=== PATIENT | male | born 1960 | race American Indian/Alaskan Native ===

== ENCOUNTER 2019-10-07 21:34 | Emergency (ER) | payer SELFPAY ==
[2019-10-07] MEDS ORDERED: ASPIRIN 325 MG TAB PO ONE (21:51)
[2019-10-07 22:04] LABS: Basophils % (Auto) 0.9 % (0.0-1.8); Eosinophils # (Auto) 0.3 K/mm3 (0.0-0.4); Eosinophils % (Auto) 5.2 % (0.0-4.3); Hemoglobin 16.1 gm/dl (11.8-15.2); Lymphocytes % (Auto) 18.8 % (13.4-35.0); Mean Corpuscular HGB Conc 34 % (32-34); Mean Corpuscular Volume 98 fl (84-94); Monocytes # (Auto) 0.5 K/mm3 (0.0-0.8); Platelet Count 160 K/mm3 (140-440); Red Blood Count 4.81 M/mm3 (3.65-5.03); Red Cell Distribution Width 13.8 % (13.2-15.2)
[2019-10-07 22:29] LABS: BUN/Creatinine Ratio 10; Blood Urea Nitrogen 7 mg/dL (9-20); Calcium 9.5 mg/dL (8.4-10.2); Hemolysis Index 13
--- NOTE | 2019-10-07 22:52 | XRay Report ---
. CHEST 2 VIEWS INDICATION / CLINICAL INFORMATION: Chest Pain. COMPARISON: None available. FINDINGS: SUPPORT DEVICES: None. HEART / MEDIASTINUM: No significant abnormality. LUNGS / PLEURA: No significant pulmonary or pleural abnormality. No pneumothorax. ADDITIONAL FINDINGS: No significant additional findings. IMPRESSION: 1. No acute findings. Signer Name: Nino Levi MD Signed: 10/07/2019 10:48 PM Workstation Name: [id number]
--- NOTE | 2019-10-08 02:49 | Emergency Department Report ---
ED Chest Pain HPI - General Chief Complaint: Chest Pain Stated Complaint: CHEST PAIN Time Seen by Provider: 10/08/19 02:44 Source: patient Mode of arrival: Ambulatory Limitations: No Limitations - History of Present Illness Initial Comments: Mr. Zhang is a 59-year-old male with history of hypertension, tobacco and alcohol dependence who presents with generalized malaise chest pain for 4 days. 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 He feels a dull ache in his chest after he returns home from work. No association with exertion. No leg pain. He drinks a sixpack of beer daily. MD Complaint: chest pain -: Gradual, days(s) (4) Onset: during rest Pain Location: substernal Severity: mild Quality: dull Consistency: constant Improves With: nothing Worsens With: nothing re: denies: nausea, vomting Other Symptoms: denies: cough, fever - Related Data Allergies Allergy/AdvReac Type Severity Reaction Status Date / Time No Known Allergies Allergy Verified 10/07/19 21:50 Heart Score - HEART Score History: Slightly suspicious EKG: Normal Age: 45-65 Risk factors: 1-2 risk factors Troponin: < normal limit HEART Score: 2 ED Review of Systems ROS: Stated complaint: CHEST PAIN Other details as noted in HPI Comment: All other systems reviewed and negative Constitutional: malaise. denies: fever Respiratory: denies: cough Cardiovascular: chest pain ED Past Medical Hx - Past Medical History Previous Medical History?: Yes Hx Hypertension: Yes - Surgical History Past Surgical History?: No ED Physical Exam - General Limitations: No Limitations General appearance: alert, in no apparent distress - Head Head exam: Present: atraumatic, normocephalic - Eye Eye exam: Present: normal appearance, conjunctival injection. Absent: scleral icterus - ENT ENT exam: Present: mucous membranes moist - Neck Neck exam: Present: normal inspection, full ROM - Respiratory Respiratory exam: Present: normal lung sounds bilaterally. Absent: respiratory distress, wheezes, rales, rhonchi - Cardiovascular Cardiovascular Exam: Present: regular rate, normal rhythm, normal heart sounds. Absent: systolic murmur, diastolic murmur, rubs, gallop - GI/Abdominal GI/Abdominal exam: Present: soft, normal bowel sounds. Absent: distended, te nderness, guarding, rebound - Rectal Rectal exam: Present: deferred - Extremities Exam Extremities exam: Present: normal inspection - Back Exam Back exam: Present: normal inspection - Neurological Exam Neurological exam: Present: alert, oriented X3 - Psychiatric Psychiatric exam: Present: normal affect, normal mood - Skin Skin exam: Present: warm, dry, intact, normal color. Absent: rash ED Course Vital Signs 10/07/19 21:48 Temperature 98.1 F Pulse Rate 87 Respiratory 16 Rate Blood Pressure 159/101 O2 Sat by Pulse 98 Oximetry ED Medical Decision Making - Lab Data Result diagrams: 10/07/19 21:54 10/07/19 21:54 Laboratory Results - last 24 hr 10/07/19 10/07/19 10/08/19 21:54 21:54 00:49 WBC 5.2 RBC 4.81 Hgb 16.1 H Hct 47.0 H MCV 98 H MCH 33 H MCHC 34 RDW 13.8 Plt Count 160 Lymph % (Auto) 18.8 [place] % (Auto) 10.0 H Eos % (Auto) 5.2 H Baso % (Auto) 0.9 Lymph # 1.0 L [place] # 0.5 Eos # 0.3 Baso # 0.0 Seg Neutrophils % 65.1 Seg Neutrophils # 3.4 Sodium 134 L Potassium 4.0 Chloride 95.9 L Carbon Dioxide 22 Anion Gap 20 BUN 7 L Creatinine 0.7 L Estimated GFR > 60 BUN/Creatinine Ratio 10 Glucose 108 H Calcium 9.5 Troponin T < 0.010 < 0.010 - Radiology Data Radiology results: report reviewed Chest radiograph: No acute findings - Medical Decision Making Mr. Zhang presents with chest pain generalized malaise. Presentation highly atypical for ACS. Differential diagnosis includes COVID-19 viral infection, esophagitis. Strongly recommended outpatient medicine follow-up. Recommend COVID-19 testing. Referral request faxed to [facility]. Strongly recommended smoking cessation and decrease of alcohol use. Critical care attestation.: If time is entered above; I have spent that time in minutes in the direct care of this critically ill patient, excluding procedure time. ED Disposition Clinical Impression: Chest pain Disposition: DC-01 TO HOME OR SELFCARE Is pt being admited?: No Does the pt Need Aspirin: No Condition: Stable Instructions: Chest Pain (ED) Referrals: SAADIA IBARRA MD [Staff Physician] - 3-5 Days
[2019-10-08 03:19] VITALS: BP 156/98
== END 2019-10-08 03:18 | disposition home or self-care (01) ==
LOC: ED 21:34
DX: R07.89 Other chest pain (principal); R53.81 Other malaise; I10 Essential (primary) hypertension
CPT/HCPCS: 36415; 71046; 80048; 84484; 85025; 93005

== ENCOUNTER 2020-01-12 06:26 | Emergency (ER) | payer OTHER ==
--- NOTE | 2020-01-12 07:06 | XRay Report ---
CHEST 1 VIEW 01/12/2020 5:52 AM INDICATION / CLINICAL INFORMATION: Chest Pain. COMPARISON: 12/03/19 FINDINGS: SUPPORT DEVICES: None. HEART / MEDIASTINUM: No significant abnormality. LUNGS / PLEURA: No significant pulmonary or pleural abnormality. No pneumothorax. ADDITIONAL FINDINGS: No significant additional findings. IMPRESSION: 1. No acute findings. No change. Signer Name: Kvng Pantoja MD Signed: 01/12/2020 7:00 AM Workstation Name: [id number]
[2020-01-12 07:34] LABS: Basophils # (Auto) 0.1 K/mm3 (0.0-0.1); Basophils % (Auto) 2.5 % (0.0-1.8); Eosinophils # (Auto) 0.3 K/mm3 (0.0-0.4); Eosinophils % (Auto) 8.7 % (0.0-4.3); Hematocrit 48.5 % (35.5-45.6); Hemoglobin 16.6 gm/dl (11.8-15.2); Lymphocytes # (Auto) 1.6 K/mm3 (1.2-5.4); Lymphocytes % (Auto) 41.4 % (13.4-35.0); Mean Corpuscular HGB Conc 34 % (32-34); Mean Corpuscular Volume 97 fl (84-94); Monocytes # (Auto) 0.2 K/mm3 (0.0-0.8); Monocytes % (Auto) 5.3 % (0.0-7.3); Platelet Count 293 K/mm3 (140-440); Red Blood Count 4.98 M/mm3 (3.65-5.03); Red Cell Distribution Width 13.9 % (13.2-15.2)
[2020-01-12 07:48] LABS: BUN/Creatinine Ratio 5; Blood Urea Nitrogen 4 mg/dL (9-20); Calcium 9.9 mg/dL (8.4-10.2); Hemolysis Index 6
[2020-01-12] MEDS ORDERED: KETOROLAC 30 MG/1 ML INJ IV ONE (09:33)
[2020-01-12 10:35] VITALS: BP 147/98
--- NOTE | 2020-01-12 11:16 | Emergency Department Report ---
"ED Chest Pain HPI - General Chief Complaint: Chest Pain Stated Complaint: CHEST PAIN Time Seen by Provider: 01/12/20 09:24 Source: patient Mode of arrival: Ambulatory Limitations: No Limitations - History of Present Illness Initial Comments: Patient is a 59-year-old F Tongan male who has past medical history hypertension and also smokes tobacco who states he has had 2 to 3 weeks of sharp chest pain which is been constant. States there is no cough cold congestion nausea or vomiting. He does have some shortness of breath and mild dizziness occasionally. Patient states this is is constant and is not associated with deep breathing or exertion. States is day and night. Severity scale (0 -10): 8 - Related Data Home Medications Medication Instructions Recorded Confirmed Last Taken amLODIPine 10 mg PO DAILY 12/03/19 12/03/19 Unknown Previous Rx's Medication Instructions Recorded Last Taken Type Aspirin EC [Halfprin EC] 81 mg PO QDAY #30 tablet. 12/04/19 Unknown Rx Folic Acid [Folvite] 1 mg PO QDAY #30 tablet 12/04/19 Unknown Rx Pravastatin [Pravachol] 40 mg PO QHS #30 tablet 12/04/19 Unknown Rx Thiamine [Vitamin B-1] 100 mg PO QDAY #7 tablet 12/04/19 Unknown Rx Famotidine [Pepcid] 20 mg PO BID #20 tablet 01/12/20 Unknown Rx Ketorolac [Toradol] 10 mg PO Q6H PRN #12 tablet 01/12/20 Unknown Rx Allergies Allergy/AdvReac Type Severity Reaction Status Date / Time No Known Allergies Allergy Verified 10/07/19 21:50 Heart Score - HEART Score History: Slightly suspicious EKG: Normal Age: < 45 Risk factors: 1-2 risk factors Troponin: < normal limit HEART Score: 1 ED Review of Systems ROS: Stated complaint: CHEST PAIN Other details as noted in HPI Comment: All other systems reviewed and negative ED Past Medical Hx - Past Medical History Previous Medical History?: Yes Hx Hypertension: Yes - Surgical History Past Surgical History?: No - Social History Smoking Status: Former Smoker Substance Use Type: None - Medications Home Medications: Home Medications Medication Instructions Recorded Confirmed Last Taken Type amLODIPine 10 mg PO DAILY 12/03/19 12/03/19 Unknown History Aspirin EC [Halfprin EC] 81 mg PO QDAY #30 tablet. 12/04/19 Unknown Rx Folic Acid [Folvite] 1 mg PO QDAY #30 tablet 12/04/19 Unknown Rx Pravastatin [Pravachol] 40 mg PO QHS #30 tablet 12/04/19 Unknown Rx Thiamine [Vitamin B-1] 100 mg PO QDAY #7 tablet 12/04/19 Unknown Rx Famotidine [Pepcid] 20 mg PO BID #20 tablet 01/12/20 Unknown Rx Ketorolac [Toradol] 10 mg PO Q6H PRN #12 tablet 01/12/20 Unknown Rx ED Physical Exam - General Limitations: No Limitations General appearance: alert, in no apparent distress - Head Head exam: Present: atraumatic, normocephalic - Eye Eye exam: Present: normal appearance - ENT ENT exam: Present: mucous membranes moist - Neck Neck exam: Present: normal inspection - Respiratory Respiratory exam: Present: normal lung sounds bilaterally. Absent: respiratory distress, wheezes, rales, rhonchi - Cardiovascular Cardiovascular Exam: Present: regular rate, normal rhythm, normal heart sounds. Absent: systolic murmur, diastolic murmur, rubs, gallop - GI/Abdominal GI/Abdominal exam: Present: soft, normal bowel sounds. Absent: distended, tenderness, guarding, rebound - Rectal Rectal exam: Present: deferred - Extremities Exam Extremities exam: Present: normal inspection - Back Exam Back exam: Present: normal inspection - Neurological Exam Neurological exam: Present: alert, oriented X3 - Psychiatric Psychiatric exam: Present: normal affect, normal mood - Skin Skin exam: Present: warm, dry, intact, normal color. Absent: rash ED Course Vital Signs 01/12/20 01/12/20 01/12/20 06:30 10:23 10:31 Temperature 97.7 F Pulse Rate 70 76 Respiratory 18 12 15 Rate Blood Pressure 154/100 147/98 ED Medical Decision Making - Lab Data Result diagrams: 01/12/20 06:54 01/12/20 06:54 Lab Results 01/12/20 01/12/20 01/12/20 Range/Units 06:54 06:54 09:50 WBC 4.0 L (4.5-11.0) K/mm3 RBC 4.98 (3.65-5.03) M/mm3 Hgb 16.6 H (11.8-15.2) gm/dl Hct 48.5 H (35.5-45.6) % MCV 97 H (84-94) fl MCH 33 H (28-32) pg MCHC 34 (32-34) % RDW 13.9 (13.2-15.2) % Plt Count 293 (140-440) K/mm3 Lymph % (Auto) 41.4 H (13.4-35.0) % [place] % (Auto) 5.3 (0.0-7.3) % Eos % (Auto) 8.7 H (0.0-4.3) % Baso % (Auto) 2.5 H (0.0-1.8) % Lymph # (Auto) 1.6 (1.2-5.4) K/mm3 [place] # (Auto) 0.2 (0.0-0.8) K/mm3 Eos # (Auto) 0.3 (0.0-0.4) K/mm3 Baso # (Auto) 0.1 (0.0-0.1) K/mm3 Seg Neutrophils % 42.1 (40.0-70.0) % Seg Neutrophils # 1.7 L (1.8-7.7) K/mm3 D-Dimer (0-234) ng/mlDDU Sodium 142 (137-145) mmol/L Potassium 4.1 (3.6-5.0) mmol/L Chloride 101.3 (98-107) mmol/L Carbon Dioxide 27 (22-30) mmol/L Anion Gap 18 mmol/L BUN 4 L (9-20) mg/dL Creatinine 0.8 (0.8-1.3) mg/dL Estimated GFR > 60 ml/min BUN/Creatinine Ratio 5 % Glucose 89 (75-100) mg/dL Calcium 9.9 (8.4-10.2) mg/dL Troponin T < 0.010 < 0.010 (0.00-0.029) ng/mL 01/11/ Range/Units 09:50 WBC (4.5-11.0) K/mm3 RBC (3.65-5.03) M/mm3 Hgb (11.8-15.2) gm/dl Hct (35.5-45.6) % MCV (84-94) fl MCH (28-32) pg MCHC (32-34) % RDW (13.2-15.2) % Plt Count (140-440) K/mm3 Lymph % (Auto) (13.4-35.0) % [place] % (Auto) (0.0-7.3) % Eos % (Auto) (0.0-4.3) % Baso % (Auto) (0.0-1.8) % Lymph # (Auto) (1.2-5.4) K/mm3 [place] # (Auto) (0.0-0.8) K/mm3 Eos # (Auto) (0.0-0.4) K/mm3 Baso # (Auto) (0.0-0.1) K/mm3 Seg Neutrophils % (40.0-70.0) % Seg Neutrophils # (1.8-7.7) K/mm3 D-Dimer 234.39 H (0-234) ng/mlDDU Sodium (137-145) mmol/L Potassium (3.6-5.0) mmol/L Chloride (98-107) mmol/L Carbon Dioxide (22-30) mmol/L Anion Gap mmol/L BUN (9-20) mg/dL Creatinine (0.8-1.3) mg/dL Estimated GFR ml/min BUN/Creatinine Ratio % Glucose (75-100) mg/dL Calcium (8.4-10.2) mg/dL Troponin T (0.00-0.029) ng/mL - EKG Data -: EKG Interpreted by Nm EKG shows normal: sinus rhythm, axis, intervals, QRS complexes, ST-T waves Rate: normal - EKG Data Interpretation: normal EKG - Radiology Data CHEST 1 VIEW 01/12/2020 5:52 AM INDICATION / CLINICAL INFORMATION: Chest Pain. COMPARISON: 12/03/19 FINDINGS: SUPPORT DEVICES: None. HEART / MEDIASTINUM: No significant abnormality. LUNGS / PLEURA: No significant pulmonary or pleural abnormality. No pneumothorax. ADDITIONAL FINDINGS: No significant additional findings. IMPRESSION: 1. No acute findings. No change. Signer Name: Kvng Pantoja MD Signed: 01/12/2020 7:00 AM Workstation Name: [employer] | [id number] - Medical Decision Making Patient has been ruled out for an acute MA with to negative troponins. His D- dimer is less than 250. Patient's pain is atypical. Patient given cardiology for follow-up will be discharged home. Critical care attestation.: If time is entered above; I have spent that time in minutes in the direct care of this critically ill patient, excluding procedure time. ED Disposition Clinical Impression: Atypical chest pain Disposition: DC-01 TO HOME OR SELFCARE Is pt being admited?: No Does the pt Need Aspirin: No Condition: Stable Instructions: Chest Pain (ED) Referrals: PRIMARY CARE, [Primary Care Provider] - 3-5 Days Time of Disposition: 11:16"
== END 2020-01-12 12:18 | disposition home or self-care (01) ==
LOC: ED 06:26
DX: R07.89 Other chest pain (principal); I10 Essential (primary) hypertension; Z79.899 Other long term (current) drug therapy; Z87.891 Personal history of nicotine dependence
CPT/HCPCS: 36415; 71045; 80048; 84484; 85025; 85379; 93005; 96374; 99284; J1885

== ENCOUNTER 2020-01-23 07:36 | Observation (INO) | payer OTHER ==
[2020-01-23] MEDS ORDERED: ASPIRIN 325 MG TAB PO ONE (07:52)
[2020-01-23] MEDS ORDERED: fentaNYL 100 MCG/2 ML INJ IV ONE (08:03)
[2020-01-23] MEDS ORDERED: ONDANSETRON 4 MG/2 ML INJ IV ONE (08:03)
[2020-01-23] MEDS ORDERED: NITROGLYCERIN 2% OINT 1 GM TP ONE (08:03)
[2020-01-23] MEDS ORDERED: cloNIDine 0.2 MG TAB PO ONE (08:07)
--- NOTE | 2020-01-23 08:08 | Emergency Department Report ---
HPI - General Chief Complaint: Chest Pain Time Seen by Provider: 01/23/20 07:54 - HPI HPI: Room 9 The patient is a 59-year-old male present with a chief complaint of chest pain. Patient states for the past 3 days he has had pain in the left chest that is been constant and sharp in nature. Patient states his pain is associated with shortness of breath, diaphoresis and nausea/vomiting. Patient currently gives his chest pain a score of 8/10. Patient states he is never had a stress test or cardiac catheterization ED Past Medical Hx - Past Medical History Hx Hypertension: Yes - Surgical History Past Surgical History?: No - Family History Family history: no significant - Social History Smoking Status: Current Every Day Smoker (1/2 pack/day) Substance Use Type: None (Denies illicit drug use), Alcohol (2-3 beers after work) - Medications Home Medications: Home Medications Medication Instructions Recorded Confirmed Last Taken Type amLODIPine 10 mg PO DAILY 12/03/19 12/03/19 Unknown History Aspirin EC [Halfprin EC] 81 mg PO QDAY #30 tablet.dr 12/04/19 Unknown Rx Folic Acid [Folvite] 1 mg PO QDAY #30 tablet 12/04/19 Unknown Rx Pravastatin [Pravachol] 40 mg PO QHS #30 tablet 12/04/19 Unknown Rx Thiamine [Vitamin B-1] 100 mg PO QDAY #7 tablet 12/04/19 Unknown Rx Famotidine [Pepcid] 20 mg PO BID #20 tablet 01/12/20 Unknown Rx Ketorolac [Toradol] 10 mg PO Q6H PRN #12 tablet 01/12/20 Unknown Rx ED Review of Systems ROS: Stated complaint: CHEST PAIN Other details as noted in HPI Constitutional: diaphoresis Eyes: denies: eye pain ENT: denies: throat pain Respiratory: shortness of breath Cardiovascular: chest pain Endocrine: no symptoms reported Gastrointestinal: nausea, vomiting Genitourinary: denies: dysuria Musculoskeletal: denies: back pain Neurological: denies: headache Physical Exam - Physical Exam Vital Signs: Vital Signs 01/23/20 07:45 Temperature 97.8 F Pulse Rate 95 H Respiratory 20 Rate Blood Pressure 180/87 [Right] O2 Sat by Pulse 100 Oximetry Physical Exam: GENERAL: The patient is well-developed well-nourished male sitting on stretcher holding chest appearing to be in mild discomfort. [] HEENT: Normocephalic. Atraumatic. Extraocular motions are intact. Patient has moist mucous membranes. NECK: Supple. Trachea midline CHEST/LUNGS: Clear to auscultation. There is no respiratory distress noted. HEART/CARDIOVASCULAR: Regular. There is no tachycardia. There is no gallop rub or murmur. ABDOMEN: Abdomen is soft, nontender. Patient has normal bowel sounds. There is no abdominal distention. SKIN: There is no rash. There is no edema. There is no diaphoresis. NEURO: The patient is awake, alert, and oriented. The patient is cooperative. The patient has normal speech MUSCULOSKELETAL:There is no evidence of acute injury. ED Course Vital Signs 01/23/20 07:45 Temperature 97.8 F Pulse Rate 95 H Respiratory 20 Rate Blood Pressure 180/87 [Right] O2 Sat by Pulse 100 Oximetry ED Medical Decision Making - Lab Data Result diagrams: 01/23/20 07:55 01/23/20 07:55 Laboratory Tests 01/23/20 01/23/20 07:55 07:55 WBC 4.8 RBC 4.84 Hgb 16.2 H Hct 48.1 H MCV 99 H MCH 33 H MCHC 34 RDW 13.7 Plt Count 195 Lymph % (Auto) 43.3 H [place] % (Auto) 8.3 H Eos % (Auto) 7.0 H Baso % (Auto) 1.1 Lymph # (Auto) 2.1 [place] # (Auto) 0.4 Eos # (Auto) 0.3 Baso # (Auto) 0.1 Seg Neutrophils % 40.3 Seg Neutrophils # 1.9 Sodium 142 Potassium 3.7 Chloride 101.1 Carbon Dioxide 28 Anion Gap 17 BUN 4 L Creatinine 0.7 L Estimated GFR > 60 BUN/Creatinine Ratio 6 Glucose 91 Calcium 9.3 Troponin T < 0.010 - EKG Data -: EKG Interpreted by Me EKG shows normal: sinus rhythm Rate: normal - EKG Data When compared to previous EKG there are: previous EKG unavailable Interpretation: nonspecific ST-T wave yareli (T wave inversion in lead V3) - Radiology Data Radiology results: report reviewed (Chest x-ray), image reviewed (Chest x-ray) interpreted by me: Chest x-ray-no focal infiltrates, no pneumothorax. No foreign body seen [address] [place] [address] XRay Report Signed Patient: SUNDEEP SALAMANCA MR#: [id number] : 1960 Acct:[id number] Age/Sex: 59 / M ADM Date: 01/23/20 Loc: ED Attending Dr: Ordering Physician: NICOLETTE MOREIRA MD Date of Service: 01/23/20 Procedure(s): XR chest 1V ap Accession Number(s): [id number] cc: NICOLETTE MORERIA MD Fluoro Time In Minutes: CHEST 1 VIEW 7:53 AM INDICATION / CLINICAL INFORMATION: Chest Pain. COMPARISON: 01/12/2020. FINDINGS: SUPPORT DEVICES: None. HEART / MEDIASTINUM: The heart size and pulmonary vasculature are normal. The aorta is normal in caliber. LUNGS / PLEURA: No significant pulmonary or pleural abnormality. No pneumothorax. ADDITIONAL FINDINGS: No significant additional findings. IMPRESSION: No acute abnormality or significant change. Signer Name: Joshua Joshi MD Signed: 01/23/2020 8:36 AM Workstation Name: [id number] Transcribed By: RT Dictated By: Joshua Joshi MD Electronically Authenticated By: Joshua Joshi MD Signed Date/Time: 01/23/20835 DD/ 4 - Differential Diagnosis ACS, pericarditis, GERD Critical care attestation.: If time is entered above; I have spent that time in minutes in the direct care of this critically ill patient, excluding procedure time. ED Disposition Clinical Impression: Chest pain Disposition: 09 OP ADMIT IP TO THIS HOSP Is pt being admited?: Yes Does the pt Need Aspirin: Yes Condition: Stable Instructions: Chest Pain (ED) Time of Disposition: 09:59 (Hospitalist paged (Dr Nelson)) HEART Score - HEART Score History: Moderately suspicious EKG: Non-specific Age: 45-65 Risk factors: 1-2 risk factors Troponin: < normal limit HEART Score: 4
[2020-01-23 08:17] LABS: Basophils # (Auto) 0.1 K/mm3 (0.0-0.1); Basophils % (Auto) 1.1 % (0.0-1.8); Eosinophils # (Auto) 0.3 K/mm3 (0.0-0.4); Hematocrit 48.1 % (35.5-45.6); Hemoglobin 16.2 gm/dl (11.8-15.2); Lymphocytes # (Auto) 2.1 K/mm3 (1.2-5.4); Lymphocytes % (Auto) 43.3 % (13.4-35.0); Mean Corpuscular HGB Conc 34 % (32-34); Mean Corpuscular Volume 99 fl (84-94); Monocytes # (Auto) 0.4 K/mm3 (0.0-0.8); Monocytes % (Auto) 8.3 % (0.0-7.3); Platelet Count 195 K/mm3 (140-440); Red Blood Count 4.84 M/mm3 (3.65-5.03); Red Cell Distribution Width 13.7 % (13.2-15.2)
[2020-01-23 08:27] LABS: BUN/Creatinine Ratio 6; Blood Urea Nitrogen 4 mg/dL (9-20); Calcium 9.3 mg/dL (8.4-10.2); Hemolysis Index 8
--- NOTE | 2020-01-23 08:40 | XRay Report ---
CHEST 1 VIEW 7:53 AM INDICATION / CLINICAL INFORMATION: Chest Pain. COMPARISON: 01/12/2020. FINDINGS: SUPPORT DEVICES: None. HEART / MEDIASTINUM: The heart size and pulmonary vasculature are normal. The aorta is normal in lawanda nena. LUNGS / PLEURA: No significant pulmonary or pleural abnormality. No pneumothorax. ADDITIONAL FINDINGS: No significant additional findings. IMPRESSION: No acute abnormality or significant change. Signer Name: Joshua Joshi MD Signed: 01/23/2020 8:36 AM Workstation Name: [id number]
[2020-01-23] MEDS ORDERED: FAMOTIDINE 20 MG/2 ML INJ IV ONE (10:51)
--- NOTE | 2020-01-23 12:04 | History and Physical Report ---
History of Present Illness Date of examination: 01/23/20 Date of admission: 01/23/20 Chief complaint: chest pain intermittent for the last 2 3 weeks History of present illness: 59-year-old -[place] male patient with significant past medical history of hypertension , dyslipidemia , ongoing tobacco use presented to the emergency room with history of intermittent chest pain for the last 2- 3 weeks worse since last 3 days present with a chief complaint of chest pain. Patient states grades his chest pain between 6-8 over 10 at its peak , at the time of my evaluation he grades his chest pain at 4 , left-sided and retrosternal pressure to squeezing type , lasts about 10 minutes , associated with nausea vomiting and sometimes diaphoresis with mild shortness of breath , Patient denies orthopnea or paroxysmal nocturnal dyspnea , patient has been having this pain for a few weeks , did not seek medical attention. Patient does not have a history of coronary artery disease, takes blood pressure medications as well as statin History of ongoing tobacco use smokes about half to 1 pack a day for more than 8 years Denies alcohol or recreational drug use Initial evaluation in the ER, chest x-ray no acute abnormalities, 2 sets of cardiac enzymes troponin negative Past History Past Medical History: hypertension, hyperlipidemia Past Surgical History: Other (Shoulder dislocation) Social history: smoking. denies: alcohol abuse, prescription drug abuse Family history: hypertension Medications and Allergies Allergies Allergy/AdvReac Type Severity Reaction Status Date / Time No Known Allergies Allergy Verified 10/07/19 21:50 Home Medications Medication Instructions Recorded Confirmed Last Taken Type amLODIPine 10 mg PO DAILY 12/03/19 12/03/19 01/22/20 12:00 History Aspirin EC [Halfprin EC] 81 mg PO QDAY #30 tablet. 12/04/19 01/23/20 Unknown R x Folic Acid [Folvite] 1 mg PO QDAY #30 tablet 12/04/19 01/23/20 Unknown Rx Pravastatin [Pravachol] 40 mg PO QHS #30 tablet 12/04/19 01/23/20 Unknown Rx Famotidine [Pepcid] 20 mg PO BID #20 tablet 01/12/20 Unknown Rx Review of Systems Constitutional: weakness, no weight loss, no weight gain, no fever, no chills Ears, nose, mouth and throat: no nasal congestion, no nasal discharge Cardiovascular: chest pain, no orthopnea, no palpitations, no lightheadedness, no shortness of breath Respiratory: no cough, no shortness of breath Gastrointestinal: no abdominal pain, no nausea, no vomiting Genitourinary Male: no dysuria, no hematuria Musculoskeletal: no myalgias, no arthritis Integumentary: no rash, no lesions Neurological: no seizures, no syncope Psychiatric: no anxiety, no depression Endocrine: no cold intolerance, no heat intolerance Hematologic/Lymphatic: no easy bruising, no easy bleeding Allergic/Immunologic: no urticaria, no allergic rhinitis Exam - Constitutional Vitals: Temp Pulse Resp BP Pulse Ox 97.8 F 95 H 20 112/87 100 01/23/20 07:45 01/23/20 07:45 01/23/20 07:45 01/23/20 09:15 01/23/20 07:45 General appearance: Present: mild distress, well-nourished - EENT Eyes: Present: PERRL, EOM intact - Neck Neck: Present: supple, normal ROM - Respiratory Respiratory effort: normal Respiratory: bilateral: diminished, negative: rales, rhonchi, wheezing - Cardiovascular Rhythm: regular Heart Sounds: Present: S1 & S2 - Extremities Extremities: no ischemia, No edema - Abdominal General gastrointestinal: Present: soft, non-tender, non-distended, normal bowel sounds - Integumentary Integumentary: Present: clear, warm - Musculoskeletal Musculoskeletal: strength equal bilaterally, generalized weakness - Psychiatric Psychiatric: appropriate mood/affect, cooperative - Neurologic Neurologic: CNII-XII intact, moves all extremities HEART Score - HEART Score EKG: Non-specific Age: 45-65 Risk factors: 1-2 risk factors Troponin: Troponin T < 0.010 ng/mL (0.00-0.029) 01/23/20 11:07 Troponin: < normal limit Results - Labs CBC & Chem 7: 01/23/20 07:55 01/23/20 07:55 Labs: Abnormal lab results 01/23/20 01/23/20 Range/Units 07:55 07:55 Hgb 16.2 H (11.8-15.2) gm/dl Hct 48.1 H (35.5-45.6) % MCV 99 H (84-94) fl MCH 33 H (28-32) pg Lymph % (Auto) 43.3 H (13.4-35.0) % [place] % (Auto) 8.3 H (0.0-7.3) % Eos % (Auto) 7.0 H (0.0-4.3) % BUN 4 L (9-20) mg/dL Creatinine 0.7 L (0.8-1.3) mg/dL Assessment and Plan --Chest pain/angina; Evaluate for acute coronary syndrome Serial cardiac enzymes, EKG as needed for chest pain Patient had recent echocardiogram, stress test to evaluate for ischemia Patient has multiple risk factors, cardiology consult --History of hypertension; moderate control Continue beta-blockers, CELINE inhibitors, nitrates As needed hydralazine --Dyslipidemia; low-cholesterol diet, Statin --Ongoing tobacco use; smoking cessation counseling Patient refused nicotine patch --DVT prophylaxis' Lovenox We will closely monitor the patient and adjust the management as needed We will follow stress test and cardiology evaluation recommendations If patient is stable and stress is negative May be discharged home tomorrow if stable
[2020-01-23] MEDS: amLODIPine 10 MG TAB PO SCH (14:29)
[2020-01-23] MEDS: FOLIC ACID 1 MG TAB PO SCH (14:29)
[2020-01-23] MEDS: FAMOTIDINE 20 MG TAB PO SCH ×2 (14:30→22:09)
[2020-01-23] MEDS ORDERED: MORPHINE 2 MG/1 ML INJ IV PRN (17:43)
[2020-01-23] MEDS ORDERED: ACETAMINOPHEN 325 MG TAB PO PRN (17:45)
[2020-01-23] MEDS ORDERED: ZOLPIDEM 5 MG TAB PO PRN (18:36)
[2020-01-23] MEDS ORDERED: NITROGLYCERIN 0.4 MG TAB SUBL SL PRN (18:36)
[2020-01-23] MEDS ORDERED: ALUM-MAG HYDROXIDE-SIMETHICONE 200-200-20MG/5ML ORAL LIQD 30 ML PO PRN (18:36)
[2020-01-23] MEDS ORDERED: MORPHINE 2 MG/1 ML INJ IV ONE (18:42)
[2020-01-23 19:56] LABS: Creatine Kinase MB < 1.0 ng/mL (0.0-4.0)
[2020-01-23] MEDS ORDERED: PRAVASTATIN 40 MG TAB PO SCH (22:00)
[2020-01-23] MEDS: NICOTINE 14 MG/24 HR PATCH TD SCH (22:09)
[2020-01-23] MEDS: DOCUSATE SODIUM 100 MG CAP PO SCH (22:09)
[2020-01-24] MEDS ORDERED: PANTOPRAZOLE 40 MG TAB PO SCH (07:30)
[2020-01-24 07:33] LABS: Amphetamine Screen,Urine Negative; Benzodiazepines Screen,Urine Negative; Cannabinoid Screen,Urine Negative; Cocaine Screen,Urine Negative; Methadone Screen,Urine Negative; Opiate Screen,Urine Negative
[2020-01-24] MEDS: FOLIC ACID 1 MG TAB PO SCH (09:24)
[2020-01-24] MEDS: DOCUSATE SODIUM 100 MG CAP PO SCH (09:24)
[2020-01-24] MEDS: amLODIPine 10 MG TAB PO SCH (09:24)
[2020-01-24] MEDS: FAMOTIDINE 20 MG TAB PO SCH (09:24)
[2020-01-24] MEDS: NICOTINE 14 MG/24 HR PATCH TD SCH (09:24)
[2020-01-24] MEDS ORDERED: REGADENOSON 0.4 MG/5 ML INJ IV ONE ×2 (09:59→10:02)
[2020-01-24] MEDS ORDERED: ASPIRIN EC 81 MG TAB PO SCH (10:00)
--- NOTE | 2020-01-24 10:45 | Consultation ---
History of Present Illness Consult date: 01/24/20 Consult reason: chest pain History of present illness: Patient is a 59-year-old man with a history of hypertension, no prior cardiac history. He presents to this hospital with 3 weeks of dysphagia, excessive belching and nausea. He tells me that after meals his food gets "stuck"in his lower sternum. During my interview with him he is actively belching repeatedly. He states that he has been taking multiple doses of Pepcid and other antacids with no relief. His symptoms culminated in some atypical, nonexertional chest pain which prompted his presentation to the emergency room. He underwent a rule out CO protocol, internal medicine service ordered a stress test and a cardiology consult. The patient has no exertional chest pain or shortness of breath, continues to complain of symptoms of dysphagia and excessive belching. Serial ECGs normal sinus rhythm, normal ECG. Troponin levels measured x4 are normal. Past History Past Medical History: hypertension, hyperlipidemia Past Surgical History: Other (Shoulder dislocation) Social history: smoking. denies: alcohol abuse, prescription drug abuse Family history: hypertension Medications and Allergies Allergies Allergy/AdvReac Type Severity Reaction Status Date / Time No Known Allergies Allergy Verified 10/07/19 21:50 Home Medications Medication Instructions Recorded Confirmed Last Taken Type amLODIPine 10 mg PO DAILY 12/03/19 12/03/19 01/22/20 12:00 History Aspirin EC [Halfprin EC] 81 mg PO QDAY #30 tablet. 12/04/19 01/23/20 Unknown Rx Folic Acid [Folvite] 1 mg PO QDAY #30 tablet 12/04/19 01/23/20 Unknown Rx Pravastatin [Pravachol] 40 mg PO QHS #30 tablet 12/04/19 01/23/20 Unknown Rx Famotidine [Pepcid] 20 mg PO BID #20 tablet 01/12/20 Unknown Rx Active Meds: Active Medications Acetaminophen (Tylenol) 650 mg PO Q4H PRN PRN Reason: Pain, Mild (1-3) Al Hydrox/Mg Hydrox/Simethicone (Alum-Mag Hydrox-Simeth 584-132-65cq/5ml) 30 ml PO Q4H PRN PRN Reason: Indigestion Amlodipine Besylate (Amlodipine) 10 mg PO DAILY [facility] Last Admin: 01/24/20 09:24 Dose: 10 mg Documented by: Aspirin (Halfprin Ec) 81 mg PO QDAY [facility] [place] Last Admin: 01/24/20 09:24 Dose: 81 mg Documented by: Docusate Sodium (Colace) 100 mg PO BID [facility] [place] Last Admin: 01/24/20 09:24 Dose: 100 mg Documented by: Famotidine (Pepcid) 20 mg PO BID [facility] [place] Last Admin: 01/24/20 09:24 Dose: 20 mg Documented by: Folic Acid (Folvite) 1 mg PO QDAY [facility] [place] Last Admin: 01/24/20 09:24 Dose: 1 mg Documented by: Morphine Sulfate (Morphine) 1 mg IV Q6HR PRN PRN Reason: Pain, Moderate (4-6) Last Admin: 01/24/20 07:47 Dose: 1 mg Documented by: Nicotine (Habitrol) 14 mg TD QDAY [facility] [place] Last Admin: 01/24/20 09:24 Dose: 14 mg Documented by: Nitroglycerin (Nitrostat) 0.4 mg SL .Q5MIN PRN PRN Reason: Chest Pain Pantoprazole Sodium (Protonix) 40 mg PO QDAC [facility] [place] Last Admin: 01/24/20 09:24 Dose: 40 mg Documented by: Pravastatin Sodium (Pravachol) 40 mg PO QHS [facility] [place] Last Admin: 01/23/20 22:09 Dose: 40 mg Documented by: Zolpidem Tartrate (Ambien) 5 mg PO QHS PRN PRN Reason: Sleep Last Admin: 01/23/20 22:23 Dose: 5 mg Documented by: Review of Systems Cardiovascular: chest pain, no orthopnea, no palpitations, no rapid/irregular heart beat, no edema, no syncope, no lightheadedness, no shortness of breath Physical Examination Vital Signs Temp Pulse Resp BP Pulse Ox 97.8 F 95 H 20 180/87 100 01/23/20 07:45 01/23/20 07:45 01/23/20 07:45 01/23/20 07:45 01/23/20 07:45 General appearance: no acute distress HEENT: Positive: PERRL Neck: Positive: neck supple Cardiac: Positive: Reg Rate and Rhythm Lungs: Positive: clear to auscultation Neuro: Positive: Grossly Intact Abdomen: Positive: Soft Male genitourinary: Positive: deferred Skin: Positive: Clear Extremities: Absent: edema Results 01/23/20 07:55 01/23/20 07:55 Cardiac Enzymes 01/23/20 Range/Units 19:28 CK-MB (CK-2) < 1.0 (0.0-4.0) ng/mL EKG interpretations - Telemetry EKG Rhythm: Sinus Rhythm (Normal ECG) Assessment and Plan - Patient Problems (1) Atypical chest pain Current Visit: No Status: Acute Plan to address problem: Patient primarily presents with symptoms of dysphagia, dyspepsia, excessive belching and gastroesophageal reflux. Serial ECGs and troponin levels are normal. A thallium stress test was ordered by the medical service, has been completed and results are pending. By his description, it appears that patient symptoms GI in origin, he likely needs a GI evaluation of his dysphagia, symptoms do not appear likely cardiac.
--- NOTE | 2020-01-24 12:09 | Consultation ---
History of Present Illness - Reason for Consult Consult date: 01/24/20 Reason for consult: paula - History of Present Psychiatric Illness Deny Zhang is a 59y/o male patient who states he was admitted into the hospital for chest pain. The patient was surprised to know that he had a psych consult. He states "I never told anybody I wanted to hurt myself." The patient is a/o x 3. He's calm, cooperative and pleasant. He is polite and conversational. He denies presently or in the past of having any suicidal or homicidal thoughts. He denies hallucinations of any kind. The patient denies any psychiatric history at all. He denies any illicit drug use, alcohol or nicotine. PAST PSYCHIATRIC HISTORY: Diagnoses: Denies Suicide attempts or Self-harm behavior: Denies Prior psychiatric hospitalizations: Denies Substance Abuse history: Denies Previous psychiatric medications tried: Denies Outpatient treatment: Denies PAST MEDICAL HISTORY: None reported Family Psychiatric History: None reported or documented SOCIAL HISTORY Marital Status: Single Living Arrangements: with girlfriend Employment Status: [employer] Access to guns/weapons: Denies Education: History of Abuse: Denies Legal History: Denies REVIEW OF SYSTEMS Constitutional: Negative for weight loss ENT: Negative for stridor Respiratory: Negative for cough or hemoptysis All other systems reviewed and are negative MENTAL STATUS EXAMINATION General Appearance and Behavior: Age appropriate, good hygiene, wearing appropriate clothes, good eye contact. cam, cooperative, pleasant, polite Cooperation: Participating/engaged Psychomotor Behavior: Psychomotor normal Mood: "pretty good" Affect and affective range: congruent with stated mood Thought Process: goal directed Thought Content: Optimistic Speech: Normal rate, volume Suicidal Ideation: Denies Homicidal Ideation: Denies Hallucinations: Denies Delusions: None elicited Impulse Control: Normal Insight and Judgment: Normal Memory: Limited Attention: Normal Orientation: Alert, oriented Assessment and Plan General Psychiatric Examination TREATMENT PLAN No medications at this time Sitter: Defer to primary Medical: Per primary Disposition: Do not recommend acute inpatient treatment Will sign off. Thank you for this consult. Medications and Allergies Allergies Allergy/AdvReac Type Severity Reaction Status Date / Time No Known Allergies Allergy Verified 10/07/19 21:50 Home Medications Medication Instructions Recorded Confirmed Last Taken Type amLODIPine 10 mg PO DAILY 12/03/19 12/03/19 01/22/20 12:00 History Aspirin EC [Halfprin EC] 81 mg PO QDAY #30 tablet. 12/04/19 01/23/20 Unknown Rx Folic Acid [Folvite] 1 mg PO QDAY #30 tablet 12/04/19 01/23/20 Unknown Rx Pravastatin [Pravachol] 40 mg PO QHS #30 tablet 12/04/19 01/23/20 Unknown Rx Famotidine [Pepcid] 20 mg PO BID #20 tablet 01/12/20 Unknown Rx Active Meds: Active Medications Acetaminophen (Tylenol) 650 mg PO Q4H PRN PRN Reason: Pain, Mild (1-3) Al Hydrox/Mg Hydrox/Simethicone (Alum-Mag Hydrox-Simeth [phone]/5ml) 30 ml PO Q4H PRN PRN Reason: Indigestion Amlodipine Besylate (Amlodipine) 10 mg PO DAILY [facility] Last Admin: 01/24/20 09:24 Dose: 10 mg Documented by: Aspirin (Halfprin Ec) 81 mg PO QDAY [facility] Last Admin: 01/24/20 09:24 Dose: 81 mg Documented by: Docusate Sodium (Colace) 100 mg PO BID [facility] Last Admin: 01/24/20 09:24 Dose: 100 mg Documented by: Famotidine (Pepcid) 20 mg PO BID [facility] Last Admin: 01/24/20 09:24 Dose: 20 mg Documented by: Folic Acid (Folvite) 1 mg PO QDAY [facility] Last Admin: 01/24/20 09:24 Dose: 1 mg Documented by: Morphine Sulfate (Morphine) 1 mg IV Q6HR PRN PRN Reason: Pain, Moderate (4-6) Last Admin: 01/24/20 07:47 Dose: 1 mg Documented by: Nicotine (Habitrol) 14 mg TD QDAY [facility] Last Admin: 01/24/20 09:24 Dose: 14 mg Documented by: Nitroglycerin (Nitrostat) 0.4 mg SL .Q5MIN PRN PRN Reason: Chest Pain Pantoprazole Sodium (Protonix) 40 mg PO QDAC [facility] Last Admin: 01/24/20 09:24 Dose: 40 mg Documented by: Pravastatin Sodium (Pravachol) 40 mg PO QHS [facility] Last Admin: 01/23/20 22:09 Dose: 40 mg Documented by: Zolpidem Tartrate (Ambien) 5 mg PO QHS PRN PRN Reason: Sleep Last Admin: 01/23/20 22:23 Dose: 5 mg Documented by: Mental Status Exam - Vital signs Last Vital Signs Temp 97.8 F 01/24/20 08:27 Pulse 62 01/24/20 08:27 Resp 16 01/24/20 08:27 BP 136/80 01/24/20 10:44 Pulse Ox 99 01/24/20 08:27 Results Result Diagrams: 01/23/20 07:55 01/23/20 07:55 All other labs normal.
--- NOTE | 2020-01-24 13:52 | Treadmill Report ---
THALLIUM STRESS TEST LEFT VENTRICLE: Left ventricular chamber size is within normal spread. Perfusion study demonstrates homogeneous uptake of the tracer in all segments, no significant defects identified. Normal apical thinning is demonstrated. Gated analysis demonstrates normal left ventricular systolic function, ejection fraction 56%. CONCLUSION: Normal myocardial perfusion study. JOB# [id number] CA/NTS
--- NOTE | 2020-01-24 14:59 | Discharge Summary ---
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 Initial evaluation in the ED with 3 sets of cardiac enzymes was negative, chest x-ray no acute abnormalities noted. Patient was admitted managed appropriately, cardiology evaluated in consultation , patient underwent stress test which was negative for ischemia and normal LV function , patient's medications optimized .patient's chest pain probably noncardiac secondary to GERD , started on Protonix , and patient advised to follow GI as outpatient for further evaluation and management of noncardiac chest pain to rule out GI causes. Patient strongly counseled smoking cessation , advised nicotine patch as needed Today patient is comfortable no chest pain no shortness of breath , ambulatory tolerating oral nutrition. Hemodynamically and clinically stable at discharge, Follow-up with cardiology per schedule, advised to see GI for evaluation to rule out GI causes of chest pain and management. Patient is stable at discharge Patient has some chronic skin condition of bilateral soles of the feet, patient is scheduled to see a newspaper journalist Discharge diagnosis; --Atypical chest pain; probably noncardiac Stress test negative, LV function within normal limits --GERD; probably the cause of chest pain Advised Protonix --Ongoing tobacco use; smoking cessation Advised nicotine patch as needed --Hypertension; moderate control Current antihypertensives and as needed medications --Dyslipidemia; low-cholesterol diet and statin Patient is hemodynamically and clinically stable at discharge Gain patient is advised to see private GI for further evaluation of Noncardiac chest pain/or GI causes of chest pain Patient is stable at discharge Disposition: TO HOME OR SELFCARE Time spent for discharge: 32 min Core Measure Documentation - Palliative Care Palliative Care/ Comfort Measures: Not Applicable - Core Measures Any of the following diagnoses?: none Exam - Constitutional Vitals: Temp Pulse Resp BP Pulse Ox 97.8 F 71 18 136/80 95 01/24/20 08:27 01/24/20 10:00 01/24/20 10:00 01/24/20 10:44 01/24/20 10:00 General appearance: Present: no acute distress, well-nourished - EENT Eyes: Present: PERRL, EOM intact - Neck Neck: Present: supple, normal ROM - Respiratory Respiratory effort: normal Respiratory: bilateral: diminished, negative: rales, rhonchi, wheezing - Cardiovascular Rhythm: regular Heart Sounds: Present: S1 & S2 - Extremities Extremities: no ischemia, No edema - Abdominal General gastrointestinal: Present: soft, non-tender, non-distended, normal bowel sounds - Integumentary Integumentary: Present: clear, warm - Musculoskeletal Musculoskeletal: strength equal bilaterally, generalized weakness - Psychiatric Psychiatric: appropriate mood/affect, cooperative - Neurologic Neurologic: moves all extremities Plan Activity: no restrictions Diet: other (Cardiac diet) Special Instructions: smoking cessation Additional Instructions: If you have worsening symptoms contact MD or go to emergency room. Advised smoking cessation, nicotine patch as needed. Your symptoms may be due to GERD[gastroesophageal reflux disease]. Advised to see private GI[gastrointestinal specialist] Dr. Jevon Whitehead for further evaluation and management Follow up with: PRIMARY CARE, [Primary Care Provider] - 7 Days SEN WHITEHEAD MD [Staff Physician] - 7 Days FRANK OSCAR MD [Staff Physician] - 7 Days Prescriptions: Mag Hydrox/Aluminum Hyd/Simeth [Maalox Advanced Suspension] 15 ml PO DAILY PRN 15 Days #355 oral.susp PRN Reason: Dyspepsia Pantoprazole [Protonix TAB] 40 mg PO BID #60 tablet
[2020-01-24 15:51] VITALS: BP 125/75
== END 2020-01-24 17:50 | disposition home or self-care (01) ==
LOC: ED 07:36 → 4A 10:10
PROVIDERS: ADMIT Internal Medicine; ATTEND Internal Medicine
DX: R07.89 Other chest pain (principal); I10 Essential (primary) hypertension; E78.5 Hyperlipidemia, unspecified; F17.210 Nicotine dependence, cigarettes, uncomplicated; Z79.82 Long term (current) use of aspirin; Z98.890 Other specified postprocedural states; Z79.899 Other long term (current) drug therapy
CPT/HCPCS: 36415; 71045; 78452; 80048; 80307; 82550; 82553; 84484; 85025; 93005; 93017; 96374; 96375; 96376; 99285; 99406; A9270; A9502; G0378; J2270; J2405; J2785; J3010

== ENCOUNTER 2020-01-27 09:15 | Emergency (ER) | payer OTHER ==
[2020-01-27] MEDS ORDERED: HYDROcodone/ACETAMINOPHEN 5-325 MG TAB PO ONE (10:48)
--- NOTE | 2020-01-27 10:52 | Emergency Department Report ---
ED Chest Pain HPI - General Chief Complaint: Chest Pain Stated Complaint: CHEST PAINS Time Seen by Provider: 01/27/20 10:11 Source: patient, old records reviewed Mode of arrival: Ambulatory Limitations: No Limitations - History of Present Illness Initial Comments: 59-year-old -[place] Citizen male patient with history of hypertension , dyslipidemia , and smoker presents to the hospital complaints of continued left- sided chest pain. Patient is admitted here January for the fifth and to the for similar pain and had a negative stress test and was diagnosed with atypical chest pain possible GERD with recommendation for outpatient GI follow-up. Pain is described in the left upper pectoralis/chest wall area extending to the axilla it is constant, worse to palpation, worse with movement, lying flat at night, and worse with deep inspiration. Positive shortness of breath also reported. Patient denies calf tenderness or leg edema. Patient states he was diagnosed with "a blood clot" and was treated with IV blood thinners for 2 days but was not discharged on blood thinning medications he thinks perhaps it was a wrong diagnosis. As per medical record review patient has complained of similar type of chest pain during recent ER visits in November and December. Patient denies nausea, vomiting, diaphoresis, fever, cough, recent travel, calf is, or leg edema. He also complains of blurred vision since this morning. Admitted to the hospital with complaints of blurry vision and and numbness in November 2019 and he had a unremarkable stroke work-up including MRI. Patient also complains of a rash to his feet x3 months despite treatment with multiple topical agents for fungal infection. Patient does have a primary care doctor but it does not appear he has been following up on a regular basis. Patient states he is no longer drinking daily. Patient still does work as a [employer] Severity scale (0 -10): 9 - Related Data Home Medications Medication Instructions Recorded Confirmed Last Taken amLODIPine 10 mg PO DAILY 12/03/19 01/27/20 01/27/20 Pantoprazole [Protonix TAB] 40 mg PO DAILY 01/27/20 01/27/20 01/26/20 Previous Rx's Medication Instructions Recorded Last Taken Type Aspirin EC [Halfprin EC] 81 mg PO QDAY #30 tablet. 12/04/19 01/26/20 Rx Folic Acid [Folvite] 1 mg PO QDAY #30 tablet 12/04/19 01/24/20 Rx Pravastatin [Pravachol] 40 mg PO QHS #30 tablet 12/04/19 01/25/20 Rx HYDROcodone/APAP 5-325 [[place] 1 each PO Q6HR PRN #10 tablet 01/27/20 Unknown Rx 5/325] Tolnaftate [Athlete's Foot] 1 applicatio TP BID 30 Days 01/27/20 Unknown Rx cream..g. Allergies Allergy/AdvReac Type Severity Reaction Status Date / Time No Known Allergies Allergy Verified 10/07/19 21:50 Heart Score - HEART Score History: Slightly suspicious EKG: Normal Age: 45-65 Risk factors: > 3 risk factors or hx of atherosclerotic disease Troponin: < normal limit HEART Score: 3 ED Review of Systems ROS: Stated complaint: CHEST PAINS Other details as noted in HPI Comment: All other systems reviewed and negative ED Past Medical Hx - Past Medical History Previous Medical History?: Yes Hx Hypertension: Yes - Social History Smoking Status: Unknown if ever smoked - Medications Home Medications: Home Medications Medication Instructions Recorded Confirmed Last Taken Type amLODIPine 10 mg PO DAILY 12/03/19 01/27/20 01/27/20 History Aspirin EC [Halfprin EC] 81 mg PO QDAY #30 tablet. 12/04/19 01/27/20 01/26/20 Rx Folic Acid [Folvite] 1 mg PO QDAY #30 tablet 12/04/19 01/27/20 01/24/20 Rx Pravastatin [Pravachol] 40 mg PO QHS #30 tablet 12/04/19 01/27/20 01/25/20 Rx HYDROcodone/APAP 5-325 [[place] 1 each PO Q6HR PRN #10 tablet 01/27/20 Unknown Rx 5/325] Pantoprazole [Protonix TAB] 40 mg PO DAILY 01/27/20 01/27/20 01/26/20 History Tolnaftate [Athlete's Foot] 1 applicatio TP BID 30 Days 01/27/20 Unknown Rx cream..g. ED Physical Exam - General Limitations: No Limitations - Other Other exam information: General: No acute distress Head: Atraumatic Eyes: normal appearance ENT: Moist mucous membranes Neck: Normal appearance, no midline tenderness Chest: Clear to auscultation bilaterally, reproducible tenderness to left upper chest wall and pectoralis muscle extending to the axilla CV: Regular rate and rhythm Abdomen: Soft, normal bowel sounds, nontender, nondistended, no rebound or guarding Back: Normal inspection Extremity: Normal inspection, full range of motion, no calf tenderness or leg edema Neuro: Alert O x 3, no facial asymmetry, speech clear, no gross motor sensory deficit Psych: Appropriate behavior Skin: Rash to bilateral feet scaly and flaky in appearance. Appears to be fungal. 2+ DP pulses equal bilaterally. No erythema or warmth ED Course Vital Signs 01/27/20 01/27/20 01/27/20 09:24 10:25 10:27 Temperature 98.1 F Pulse Rate 101 H 89 Respiratory 18 18 18 Rate Blood Pressure 139/90 Blood Pressure 139/69 [Right] O2 Sat by Pulse 98 98 Oximetry 01/27/20 01/27/20 01/27/20 10:31 10:45 11:09 Temperature Pulse Rate 86 92 H 82 Respiratory 17 12 17 Rate Blood Pressure 139/69 139/69 139/69 Blood Pressure [Right] O2 Sat by Pulse 98 98 97 Oximetry 01/27/20 01/27/20 01/27/20 11:15 11:31 11:45 Temperature Pulse Rate 91 H 91 H Respiratory 15 14 Rate Blood Pressure 139/69 142/74 142/74 Blood Pressure [Right] O2 Sat by Pulse 97 99 98 Oximetry 01/27/20 01/27/20 01/27/20 12:01 12:15 12:31 Temperature Pulse Rate 99 H 86 87 Respiratory 16 10 L 14 Rate Blood Pressure 150/93 150/93 134/80 Blood Pressure [Right] O2 Sat by Pulse 97 97 96 Oximetry 01/27/20 01/27/20 01/27/20 12:45 13:01 13:15 Temperature Pulse Rate 86 86 95 H Respiratory 12 14 11 L Rate Blood Pressure 134/80 134/83 134/83 Blood Pressure [Right] O2 Sat by Pulse 96 97 96 Oximetry ED Medical Decision Making - Lab Data Result diagrams: 01/27/20 11:50 01/27/20 11:50 Lab Results 01/27/20 01/27/20 01/27/20 Range/Units 11:50 11:50 11:50 WBC 5.8 (4.5-11.0) K/mm3 RBC 4.78 (3.65-5.03) M/mm3 Hgb 16.1 H (11.8-15.2) gm/dl Hct 47.4 H (35.5-45.6) % MCV 99 H (84-94) fl MCH 34 H (28-32) pg MCHC 34 (32-34) % RDW 13.8 (13.2-15.2) % Plt Count 182 (140-440) K/mm3 Lymph % (Auto) 20.6 (13.4-35.0) % [place] % (Auto) 6.2 (0.0-7.3) % Eos % (Auto) 1.4 (0.0-4.3) % Baso % (Auto) 0.5 (0.0-1.8) % Lymph # (Auto) 1.2 (1.2-5.4) K/mm3 [place] # (Auto) 0.4 (0.0-0.8) K/mm3 Eos # (Auto) 0.1 (0.0-0.4) K/mm3 Baso # (Auto) 0.0 (0.0-0.1) K/mm3 Seg Neutrophils % 71.3 H (40.0-70.0) % Seg Neutrophils # 4.1 (1.8-7.7) K/mm3 D-Dimer 267.88 H (0-234) ng/mlDDU Sodium 142 (137-145) mmol/L Potassium 4.1 (3.6-5.0) mmol/L Chloride 102.4 (98-107) mmol/L Carbon Dioxide 28 (22-30) mmol/L Anion Gap 16 mmol/L BUN 6 L (9-20) mg/dL Creatinine 0.8 (0.8-1.3) mg/dL Estimated GFR > 60 ml/min BUN/Creatinine Ratio 8 % Glucose 84 (75-100) mg/dL Calcium 9.3 (8.4-10.2) mg/dL Total Bilirubin 0.40 (0.1-1.2) mg/dL AST 33 (5-40) units/L ALT 35 (7-56) units/L Alkaline Phosphatase 74 (35-129) units/L Troponin T < 0.010 (0.00-0.029) ng/mL Total Protein 8.0 (6.3-8.2) g/dL Albumin 4.4 (3.9-5) g/dL Albumin/Globulin Ratio 1.2 % Urine Opiates Screen Urine Methadone Screen Ur Barbiturates Screen Ur Phencyclidine Scrn Ur Amphetamines Screen U Benzodiazepines Scrn Urine Cocaine Screen U Marijuana (THC) Screen Drugs of Abuse Note 01/27/20 01/27/20 Range/Units 12:04 14:57 WBC (4.5-11.0) K/mm3 RBC (3.65-5.03) M/mm3 Hgb (11.8-15.2) gm/dl Hct (35.5-45.6) % MCV (84-94) fl MCH (28-32) pg MCHC (32-34) % RDW (13.2-15.2) % Plt Count (140-440) K/mm3 Lymph % (Auto) (13.4-35.0) % [place] % (Auto) (0.0-7.3) % Eos % (Auto) (0.0-4.3) % Baso % (Auto) (0.0-1.8) % Lymph # (Auto) (1.2-5.4) K/mm3 [place] # (Auto) (0.0-0.8) K/mm3 Eos # (Auto) (0.0-0.4) K/mm3 Baso # (Auto) (0.0-0.1) K/mm3 Seg Neutrophils % (40.0-70.0) % Seg Neutrophils # (1.8-7.7) K/mm3 D-Dimer (0-234) ng/mlDDU Sodium (137-145) mmol/L Potassium (3.6-5.0) mmol/L Chloride (98-107) mmol/L Carbon Dioxide (22-30) mmol/L Anion Gap mmol/L BUN (9-20) mg/dL Creatinine (0.8-1.3) mg/dL Estimated GFR ml/min BUN/Creatinine Ratio % Glucose (75-100) mg/dL Calcium (8.4-10.2) mg/dL Total Bilirubin (0.1-1.2) mg/dL AST (5-40) units/L ALT (7-56) units/L Alkaline Phosphatase (35-129) units/L Troponin T < 0.010 (0.00-0.029) ng/mL Total Protein (6.3-8.2) g/dL Albumin (3.9-5) g/dL Albumin/Globulin Ratio % Urine Opiates Screen Negative Urine Methadone Screen Negative Ur Barbiturates Screen Negative Ur Phencyclidine Scrn Negative Ur Amphetamines Screen Negative U Benzodiazepines Scrn Negative Urine Cocaine Screen Negative U Marijuana (THC) Screen Negative Drugs of Abuse Note Disclamer - EKG Data -: EKG Interpreted by Me EKG shows normal: sinus rhythm, ST-T waves (No STEMI) Rate: normal - EKG Data When compared to previous EKG there are: no significant change - Radiology Data Radiology results: report reviewed CT angio chest INDICATION / CLINICAL INFORMATION: cp, mild ddimer elevation. TECHNIQUE: Axial CT images were obtained through the chest after injection of IV contrast. 3 plane MIP and/or 3D reconstructions were produced. All CT scans at this location are performed using CT dose reduction for ALARA by means of automated exposure control. COMPARISON: None availAscendingble. FINDINGS: PULMONARY ARTERIES: No pulmonary emboli. HEART: No significant abnormality. MEDIASTINUM / MATI: No significant abnormality. LUNGS: Mild dependent atelectasis. No airspace disease. A few scattered pneumatoceles. No pleural effusion. No pneumothorax. ADDITIONAL FINDINGS: None. UPPER ABDOMEN: No acute findings. SKELETAL STRUCTURES: No significant osseous abnormality. IMPRESSION: 1. No CT evidence for pulmonary embolism. 2. No acute findings. Chest x-ray: No acute finding - Medical Decision Making Patient ED work-up unremarkable. Although he has mild elevation in D-dimer and no symptoms of DVT/PE his CTA was negative for pulmonary embolism. Clinically his pain is reproducible along the pectoralis muscle on the left suggestive of pectoralis muscle strain. Patient appears to have similar presentations in the past. Patient was admitted recently had a negative cardiac work-up/stress test. His EKG is unchanged and his troponin today is negative x2. Once again outpatient follow-up will be encouraged for further evaluation. Patient did receive [place] in the ED with some improvement in pain and therefore this was continued along with Motrin. Patient fungal appearing rash to feet has been chronic for the last 2 weeks. Additional topical fungal will be also be prescribed outpatient follow-up will be encouraged. Critical Care Time: No Critical care attestation.: If time is entered above; I have spent that time in minutes in the direct care o f this critically ill patient, excluding procedure time. ED Disposition Clinical Impression: Pectoralis muscle strain, Atypical chest pain, Tinea pedis Disposition: DC-01 TO HOME OR SELFCARE Is pt being admited?: No Does the pt Need Aspirin: No Condition: Stable Instructions: Chest Pain (ED), Chest Wall Pain, Athlete's Foot Additional Instructions: Take the medication as prescribed. Follow-up with your doctor or doctor/clinic provided. Return if symptoms worsen as indicated by your discharge instr uctions. Prescriptions: Tolnaftate [Athlete's Foot] 1 applicatio TP BID 30 Days cream..g. HYDROcodone/APAP 5-325 [[place] 5/325] 1 each PO Q6HR PRN #10 tablet PRN Reason: Pain Referrals: PRIMARY CARE, [Primary Care Provider] - 3-5 Days MARTINEZ MONIQUE MD [Staff Physician] - 3-5 Days (Dermatology) CHARMAINE GILLIS MD [Referring] - 3-5 Days (Dermatology) Time of Disposition: 16:55
--- NOTE | 2020-01-27 12:28 | XRay Report ---
CHEST 2 VIEWS INDICATION: Chest Pain. COMPARISON: 01/23/2020. FINDINGS: Support devices: None. Heart: Within normal limits. Lungs/Pleura: No acute air space or interstitial disease. No significant pleural effusion. IMPRESSION: No acute findings. Signer Name: Mark Manuel MD Signed: 01/27/2020 12:24 PM Workstation Name: [id number]
[2020-01-27 12:33] LABS: Basophils % (Auto) 0.5 % (0.0-1.8); Eosinophils # (Auto) 0.1 K/mm3 (0.0-0.4); Eosinophils % (Auto) 1.4 % (0.0-4.3); Hematocrit 47.4 % (35.5-45.6); Hemoglobin 16.1 gm/dl (11.8-15.2); Lymphocytes # (Auto) 1.2 K/mm3 (1.2-5.4); Lymphocytes % (Auto) 20.6 % (13.4-35.0); Mean Corpuscular HGB Conc 34 % (32-34); Mean Corpuscular Volume 99 fl (84-94); Monocytes # (Auto) 0.4 K/mm3 (0.0-0.8); Monocytes % (Auto) 6.2 % (0.0-7.3); Platelet Count 182 K/mm3 (140-440); Red Blood Count 4.78 M/mm3 (3.65-5.03); Red Cell Distribution Width 13.8 % (13.2-15.2)
[2020-01-27 12:40] LABS: Amphetamine Screen,Urine Negative; Benzodiazepines Screen,Urine Negative; Cannabinoid Screen,Urine Negative; Cocaine Screen,Urine Negative; Methadone Screen,Urine Negative; Opiate Screen,Urine Negative
[2020-01-27 12:51] LABS: Alanine Aminotransferase 35 units/L (7-56); Albumin 4.4 g/dL (3.9-5); BUN/Creatinine Ratio 8; Blood Urea Nitrogen 6 mg/dL (9-20); Calcium 9.3 mg/dL (8.4-10.2); Hemolysis Index 5
--- NOTE | 2020-01-27 15:01 | Cat Scan Report ---
CT angio chest INDICATION / CLINICAL INFORMATION: cp, mild ddimer elevation. TECHNIQUE: Axial CT images were obtained through the chest after injection of IV contrast. 3 plane MIP and/or 3D reconstructions were produced. All CT scans at this location are performed using CT dose reduction f or ALARA by means of automated exposure control. COMPARISON: None availAscendingble. FINDINGS: PULMONARY ARTERIES: No pulmonary emboli. HEART: No significant abnormality. MEDIASTINUM / MATI: No significant abnormality. LUNGS: Mild dependent atelectasis. No airspace disease. A few scattered pneumatoceles. No pleural eff usion. No pneumothorax. ADDITIONAL FINDINGS: None. UPPER ABDOMEN: No acute findings. SKELETAL STRUCTURES: No significant osseous abnormality. IMPRESSION: 1. No CT evidence for pulmonary embolism. 2. No acute findings. Signer Name: David Kramer MD Signed: 01/27/2020 2:57 PM Workstation Name: [id number]
[2020-01-27 17:47] VITALS: BP 141/92
== END 2020-01-27 17:47 | disposition home or self-care (01) ==
LOC: ED 09:15
DX: S46.812A Strain of other muscles, fascia and tendons at shoulder and upper arm level, left arm, initial encounter (principal); B35.3 Tinea pedis; I10 Essential (primary) hypertension; Z79.899 Other long term (current) drug therapy; X58.XXXA Exposure to other specified factors, initial encounter; Y93.89 Activity, other specified; Y92.89 Other specified places as the place of occurrence of the external cause; Y99.8 Other external cause status
CPT/HCPCS: 36415; 71046; 71275; 80053; 80307; 84484; 85025; 85379; 93005; 99285; Q9967

== ENCOUNTER 2020-03-01 04:56 | Emergency (ER) | payer OTHER ==
[2020-03-01] MEDS ORDERED: ASPIRIN 325 MG TAB PO ONE (06:27)
--- NOTE | 2020-03-01 07:00 | XRay Report ---
CHEST 1 VIEW, 03/01/2020 6:53 AM CLINICAL INFORMATION/INDICATION: Chest pain COMPARISON: Chest radiograph, 01/27/2020. FINDINGS: SUPPORT DEVICES: None. HEART: The cardiac silhouette is normal in size. LUNGS/PLEURA: The visualized lung huerta appear clear of focal airspace disease or significant pleura l effusion. The right lateral lung field is omitted from the [id number]. ADDITIONAL FINDINGS: No additional acute findings. IMPRESSION: 1. No evidence of acute cardiopulmonary process. Signer Name: Emily Lara MD Signed: 03/01/2020 6:56 AM Workstation Name: [id number]
[2020-03-01 07:01] LABS: Basophils # (Auto) 0.1 K/mm3 (0.0-0.1); Basophils % (Auto) 1.3 % (0.0-1.8); Eosinophils # (Auto) 0.2 K/mm3 (0.0-0.4); Eosinophils % (Auto) 5.1 % (0.0-4.3); Hematocrit 48.4 % (35.5-45.6); Hemoglobin 16.3 gm/dl (11.8-15.2); Lymphocytes # (Auto) 1.3 K/mm3 (1.2-5.4); Lymphocytes % (Auto) 25.6 % (13.4-35.0); Mean Corpuscular HGB Conc 34 % (32-34); Mean Corpuscular Volume 99 fl (84-94); Monocytes # (Auto) 0.4 K/mm3 (0.0-0.8); Monocytes % (Auto) 8.8 % (0.0-7.3); Platelet Count 182 K/mm3 (140-440); Red Blood Count 4.87 M/mm3 (3.65-5.03); Red Cell Distribution Width 13.9 % (13.2-15.2)
[2020-03-01 07:09] LABS: Blood Urea Nitrogen 9 mg/dL (9-20); Calcium 9.9 mg/dL (8.4-10.2); Hemolysis Index 6
[2020-03-01 07:34] LABS: BUN/Creatinine Ratio 13
[2020-03-01 15:58] VITALS: BP 144/88
--- NOTE | 2020-03-01 16:07 | Emergency Department Report ---
ED Chest Pain HPI - General Chief Complaint: Chest Pain Stated Complaint: CHEST PAIN/UNCONTROL SHAKING Time Seen by Provider: 03/01/20 15:34 Source: patient Mode of arrival: Ambulatory Limitations: No Limitations - History of Present Illness Initial Comments: Patient is 59 years old male with history of hypertension. Patient presented to the ER complaining of chest pain, diffuse in nature radiating to the back for few months. Patient describes his pain as sharp, on and off. Patient stated that he has been evaluated by carpet sewing machine operator in the last few months and he was told that everything was fine. Patient denied any fever or chills. No shortness of breath. MD Complaint: chest pain -: month(s) Onset: during rest Pain Location: substernal, left chest, right chest, epigastric Pain Radiation: back Severity: moderate Severity scale (0 -10): 4 Quality: sharp Consistency: intermittent - Related Data Home Medications Medication Instructions Recorded Confirmed Last Taken amLODIPine 10 mg PO DAILY 12/03/19 01/27/20 01/27/20 Pantoprazole [Protonix TAB] 40 mg PO DAILY 01/27/20 01/27/20 01/26/20 Previous Rx's Medication Instructions Recorded Last Taken Type Aspirin EC [Halfprin EC] 81 mg PO QDAY #30 tablet. 12/04/19 01/26/20 Rx Folic Acid [Folvite] 1 mg PO QDAY #30 tablet 12/04/19 01/24/20 Rx Pravastatin [Pravachol] 40 mg PO QHS #30 tablet 12/04/19 01/25/20 Rx HYDROcodone/APAP 5-325 [[place] 1 each PO Q6HR PRN #10 tablet 01/27/20 Unknown Rx 5/325] Tolnaftate [Athlete's Foot] 1 applicatio TP BID 30 Days 01/27/20 Unknown Rx cream..g. Allergies Allergy/AdvReac Type Severity Reaction Status Date / Time No Known Allergies Allergy Verified 10/07/19 21:50 Heart Score - HEART Score History: Slightly suspicious EKG: Normal Age: 45-65 Risk factors: 1-2 risk factors Troponin: < normal limit HEART Score: 2 - Critical Actions Critical Actions: 0-3 pts:0.9-1.7%risk of adverse cardiac event.Candidate for discharge ED Review of Systems ROS: Stated complaint: CHEST PAIN/UNCONTROL SHAKING Other details as noted in HPI Comment: All other systems reviewed and negative Constitutional: denies: chills, fever Respiratory: denies: cough, shortness of breath, SOB with exertion, SOB at rest Cardiovascular: chest pain. denies: palpitations, dyspnea on exertion Gastrointestinal: denies: abdominal pain, nausea, vomiting, diarrhea, constipation, hematemesis, melena, hematochezia Musculoskeletal: denies: back pain Neurological: denies: headache, weakness, numbness, paresthesias, confusion, abnormal gait ED Past Medical Hx - Past Medical History Previous Medical History?: Yes Hx Hypertension: Yes - Surgical History Past Surgical History?: No - Social History Smoking Status: Never Smoker Substance Use Type: None - Medications Home Medications: Home Medications Medication Instructions Recorded Confirmed Last Taken Type amLODIPine 10 mg PO DAILY 12/03/19 01/27/20 01/27/20 History Aspirin EC [Halfprin EC] 81 mg PO QDAY #30 tablet. 12/04/19 01/27/20 01/26/20 Rx Folic Acid [Folvite] 1 mg PO QDAY #30 tablet 12/04/19 01/27/20 01/24/20 Rx Pravastatin [Pravachol] 40 mg PO QHS #30 tablet 12/04/19 01/27/20 01/25/20 Rx HYDROcodone/APAP 5-325 [[place] 1 each PO Q6HR PRN #10 tablet 01/27/20 Unknown Rx 5/325] Pantoprazole [Protonix TAB] 40 mg PO DAILY 01/27/20 01/27/20 01/26/20 History Tolnaftate [Athlete's Foot] 1 applicatio TP BID 30 Days 01/27/20 Unknown Rx cream..g. ED Physical Exam - General Limitations: No Limitations General appearance: alert, in no apparent distress - Head Head exam: Present: atraumatic, normocephalic, normal inspection - Eye Eye exam: Present: normal appearance - ENT ENT exam: Present: normal exam, normal orophraynx, mucous membranes moist - Neck Neck exam: Present: normal inspection, full ROM. Absent: tenderness, meningismus, lymphadenopathy, thyromegaly - Respiratory Respiratory exam: Present: normal lung sounds bilaterally, chest wall tenderness - Cardiovascular Cardiovascular Exam: Present: regular rate, normal rhythm, normal heart sounds - GI/Abdominal GI/Abdominal exam: Present: soft, normal bowel sounds. Absent: distended, tenderness, guarding, rebound, rigid, organomegaly, mass, bruit, pulsatile mass, hernia - Extremities Exam Extremities exam: Present: normal inspection, full ROM, normal capillary refill. Absent: pedal edema, calf tenderness - Back Exam Back exam: Present: normal inspection, full ROM. Absent: CVA tenderness (R), CVA tenderness (L), muscle spasm, paraspinal tenderness, vertebral tenderness - Neurological Exam Neurological exam: Present: alert, oriented X3, CN II-XII intact, normal gait, reflexes normal - Psychiatric Psychiatric exam: Present: normal mood - Skin Skin exam: Present: warm, intact, normal color ED Course Vital Signs 03/01/20 03/01/20 06:30 15:58 Temperature 98.6 F 98.8 F Pulse Rate 90 82 Respiratory 20 18 Rate Blood Pressure 144/90 Blood Pressure 144/88 [Left] O2 Sat by Pulse 97 98 Oximetry ED Medical Decision Making - Lab Data Result diagrams: 03/01/20 06:36 03/01/20 06:36 - EKG Data -: EKG Interpreted by Sc EKG shows normal: sinus rhythm Rate: normal - EKG Data Interpretation: no acute changes - Radiology Data Radiology results: report reviewed - Medical Decision Making Patient is 59 years old male with history of hypertension. Patient presented to the ER complaining of chest pain, diffuse in nature radiating to the back for few months. Patient describes his pain as sharp, on and off. Patient stated that he has been evaluated by carpet sewing machine operator in the last few months and he was told that everything was fine. Patient denied any fever or chills. No sh ortness of breath. Patient remained stable in the ER. EKG showed no ST elevation or depression. C hest x-ray is unremarkable. Labs reviewed and is unremarkable including negative troponin x3. Patient chest pain is atypical and reproducible. 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 Patient given prescription for Naprosyn and advised to follow-up with his primary care physician and his carpet sewing machine operator for outpatient cardiac work-up. Patient also advised to return to the ER if he develop any new symptoms or if his symptoms get worse. Critical care attestation.: If time is entered above; I have spent that time in minutes in the direct care of this critically ill patient, excluding procedure time. ED Disposition Clinical Impression: Chest pain Disposition: - TO HOME OR SELFCARE Is pt being admited?: No Condition: Stable Instructions: Chest Pain (ED), Nonspecific Chest Pain, Adult, Costochondritis Referrals: PRIMARY CARE,MD [Primary Care Provider] - 3-5 Days
== END 2020-03-01 16:32 | disposition home or self-care (01) ==
LOC: ED 04:56
DX: R07.9 Chest pain, unspecified (principal); I10 Essential (primary) hypertension; Z79.899 Other long term (current) drug therapy
CPT/HCPCS: 36415; 71045; 80048; 84484; 85025; 93005

== ENCOUNTER 2020-03-30 20:59 | Emergency (ER) | payer OTHER ==
--- NOTE | 2020-03-30 23:00 | XRay Report ---
CHEST 1 VIEW INDICATION / CLINICAL INFORMATION: Chest Pain. COMPARISON: 03/01/2020 FINDINGS: SUPPORT DEVICES: None. HEART / MEDIASTINUM: No significant abnormality. LUNGS / PLEURA: No significant pulmonary or pleural disease. No pneumothorax. ADDITIONAL FINDINGS: No significant additional findings. IMPRESSION: 1. No acute findings. 2. No interval change. Signer Name: Yanira Burkett MD Signed: 03/30/2020 10:55 PM Workstation Name: [id number]
[2020-03-30 23:08] LABS: Basophils % (Auto) 0.6 % (0.0-1.8); Eosinophils # (Auto) 0.3 K/mm3 (0.0-0.4); Eosinophils % (Auto) 3.8 % (0.0-4.3); Hemoglobin 16.7 gm/dl (11.8-15.2); Lymphocytes # (Auto) 1.3 K/mm3 (1.2-5.4); Lymphocytes % (Auto) 18.5 % (13.4-35.0); Mean Corpuscular HGB Conc 34 % (32-34); Mean Corpuscular Volume 99 fl (84-94); Monocytes # (Auto) 0.4 K/mm3 (0.0-0.8); Monocytes % (Auto) 6.2 % (0.0-7.3); Red Blood Count 4.95 M/mm3 (3.65-5.03); Red Cell Distribution Width 13.8 % (13.2-15.2)
[2020-03-30 23:12] LABS: Platelet Count 196 K/mm3 (140-440)
[2020-03-30 23:27] LABS: Blood Urea Nitrogen 7 mg/dL (9-20); Calcium 10.2 mg/dL (8.4-10.2); Hemolysis Index 11
[2020-03-30 23:28] LABS: BUN/Creatinine Ratio 10
--- NOTE | 2020-03-31 00:14 | Emergency Department Report ---
ED Chest Pain HPI - General Chief Complaint: Chest Pain Stated Complaint: DIFF BREATHING CHEST PAIN BACK NECK PAIN Time Seen by Provider: 03/30/20 23:08 Source: patient Mode of arrival: Ambulatory Limitations: No Limitations - History of Present Illness Initial Comments: This is a 59-year-old -[place] male who presents to the emergency department with a complaint of a 2-day history of multiple complaints including left-sided chest pain, posterior neck pain, low back pain, and some perioral numbness. The patient also has complaints of feeling shaky, having some stiffness or contractures of his left hand and some generalized weakness. Jing ent has a past medical history of hypertension. He is a former smoker. He denies any alcohol abuse or illicit drug use. The patient was here in January of last year for chest pain and had a stress test done on 01/24/2020 that was a normal myocardial perfusion study. The patient also recently had an MRI of the brain and a carotid ultrasound on 12/03/2019 that were both normal/unremarkable. He has not taken anything for symptoms prior to presentation. He went to an urgent care on Monday, 2 days ago, and was told to come to the emergency department. His primary care physician is a Dr. Hickman in [facility] but he has not been able to see them regarding his symptoms. No recent travel or sick contacts at home. - Related Data Home Medications Medication Instructions Recorded Confirmed Last Taken amLODIPine 10 mg PO DAILY 12/03/19 01/27/20 01/27/20 Pantoprazole [Protonix TAB] 40 mg PO DAILY 01/27/20 01/27/20 01/26/20 Previous Rx's Medication Instructions Recorded Last Taken Type Aspirin EC [Halfprin EC] 81 mg PO QDAY #30 tablet. 12/04/19 01/26/20 Rx Folic Acid [Folvite] 1 mg PO QDAY #30 tablet 12/04/19 01/24/20 Rx Pravastatin [Pravachol] 40 mg PO QHS #30 tablet 12/04/19 01/25/20 Rx HYDROcodone/APAP 5-325 [[place] 1 each PO Q6HR PRN #10 tablet 01/27/20 Unknown Rx 5/325] Tolnaftate [Athlete's Foot] 1 applicatio TP BID 30 Days 01/27/20 Unknown Rx cream..g. Naproxen [Naprosyn] 500 mg PO BID #14 tablet 03/01/20 Unknown Rx Allergies Allergy/AdvReac Type Severity Reaction Status Date / Time No Known Allergies Allergy Verified 10/07/19 21:50 Heart Score - HEART Score History: Slightly suspicious EKG: Normal Age: 45-65 Risk factors: 1-2 risk factors Troponin: < normal limit HEART Score: 2 - Critical Actions Critical Actions: 0-3 pts:0.9-1.7%risk of adverse cardiac event.Candidate for discharge ED Review of Systems ROS: Stated complaint: DIFF BREATHING CHEST PAIN BACK NECK PAIN Other details as noted in HPI Comment: All other systems reviewed and negative Constitutional: weakness. denies: chills, fever Eyes: denies: eye pain, vision change ENT: denies: ear pain, throat pain Respiratory: denies: orthopnea, shortness of breath Cardiovascular: chest pain. denies: edema Gastrointestinal: denies: abdominal pain, vomiting Genitourinary: denies: dysuria, discharge Musculoskeletal: back pain. denies: joint swelling Skin: denies: rash, lesions Neurological: numbness. denies: headache ED Past Medical Hx - Past Medical History Previous Medical History?: Yes Hx Hypertension: Yes - Surgical History Past Surgical History?: No - Social History Smoking Status: Never Smoker Substance Use Type: None - Medications Home Medications: Home Medications Medication Instructions Recorded Confirmed Last Taken Type amLODIPine 10 mg PO DAILY 12/03/19 01/27/20 01/27/20 History Aspirin EC [Halfprin EC] 81 mg PO QDAY #30 tablet. 12/04/19 01/27/20 01/26/20 Rx Folic Acid [Folvite] 1 mg PO QDAY #30 tablet 12/04/19 01/27/20 01/24/20 Rx Pravastatin [Pravachol] 40 mg PO QHS #30 tablet 12/04/19 01/27/20 01/25/20 Rx HYDROcodone/APAP 5-325 [[place] 1 each PO Q6HR PRN #10 tablet 01/27/20 Unknown Rx 5/325] Pantoprazole [Protonix TAB] 40 mg PO DAILY 01/27/20 01/27/20 01/26/20 History Tolnaftate [Athlete's Foot] 1 applicatio TP BID 30 Days 01/27/20 Unknown Rx cream..g. Naproxen [Naprosyn] 500 mg PO BID #14 tablet 03/01/20 Unknown Rx ED Physical Exam - General Limitations: No Limitations - Other Other exam information: GENERAL: The patient is well-developed well-nourished. HENT: Normocephalic. Atraumatic. Patient has moist mucous membranes. EYES: Extraocular motions are intact. No nystagmus. NECK: Supple. Trachea is midline. CHEST/LUNGS: Clear to auscultation. There is no respiratory distress noted. HEART/CARDIOVASCULAR: Regular. There is no tachycardia. There is no murmur. ABDOMEN: Abdomen is soft, nontender. Patient has normal bowel sounds. There is no abdominal distention. SKIN: Skin is warm and dry. NEURO: The patient is awake, alert, and oriented. The patient is cooperative. There is no motor or lateralizing deficits seen. Cranial nerves II through XII grossly intact but the patient does have some subjective decreased perioral sensation. Normal speech. Patient has a mild bilateral distal upper extremity tremor. No facial asymmetry. No dysmetria. No pronator drift. MUSCULOSKELETAL: There is no tenderness or deformity. There is no limitation range of motion. Radial pulse +2/4 bilaterally and capillary refill less than 2 seconds. BACK: No midline thoracic or lumbar tenderness to palpation. There is reproducible bilateral lumbar paraspinal tenderness to palpation with some taut musculature. ED Course Vital Signs 03/30/20 03/30/20 03/30/20 21:07 23:10 23:15 Temperature 98.0 F Pulse Rate 103 H 90 82 Respiratory 18 24 13 Rate Blood Pressure 149/94 133/89 Blood Pressure 147/93 [Left] O2 Sat by Pulse 97 96 96 Oximetry 03/31/20 03/31/20 03/31/20 00:04 00:15 00:30 Temperature Pulse Rate 73 Respiratory Rate Blood Pressure 134/92 133/88 133/89 Blood Pressure [Left] O2 Sat by Pulse 98 Oximetry 03/31/20 03/31/20 03/31/20 00:48 00:58 01:00 Temperature Pulse Rate 71 Respiratory 23 18 Rate Blood Pressure 133/89 140/92 Blood Pressure [Left] O2 Sat by Pulse 98 Oximetry 03/31/20 03/31/20 01:15 01:30 Temperature Pulse Rate Respiratory Rate Blood Pressure 133/82 138/91 Blood Pressure [Left] O2 Sat by Pulse 100 95 Oximetry TIM score - Tim Score Age > 65: (0) No Aspirin use within the Past 7 Days: (0) No 3 or more CAD Risk Factors: (0) No 2 or more Angina events in past 24 hrs: (1) Yes Known CAD with more than 50% Stenosis: (0) No Elevated Cardiac Markers: (0) No ST Deviation Greater than 0.5mm: (0) No TIM Score: 1 ED Medical Decision Making - Lab Data Result diagrams: 03/30/20 22:36 03/30/20 22:36 Lab Results 03/30/20 03/30/20 03/30/20 Range/Units 22:36 22:36 23:32 WBC 7.1 (4.5-11.0) K/mm3 RBC 4.95 (3.65-5.03) M/mm3 Hgb 16.7 H (11.8-15.2) gm/dl Hct 49.0 H (35.5-45.6) % MCV 99 H (84-94) fl MCH 34 H (28-32) pg MCHC 34 (32-34) % RDW 13.8 (13.2-15.2) % Plt Count 196 (140-440) K/mm3 Lymph % (Auto) 18.5 (13.4-35.0) % [place] % (Auto) 6.2 (0.0-7.3) % Eos % (Auto) 3.8 (0.0-4.3) % Baso % (Auto) 0.6 (0.0-1.8) % Lymph # (Auto) 1.3 (1.2-5.4) K/mm3 [place] # (Auto) 0.4 (0.0-0.8) K/mm3 Eos # (Auto) 0.3 (0.0-0.4) K/mm3 Baso # (Auto) 0.0 (0.0-0.1) K/mm3 Seg Neutrophils % 70.9 H (40.0-70.0) % Seg Neutrophils # 5.0 (1.8-7.7) K/mm3 Sodium 135 L (137-145) mmol/L Potassium 4.0 (3.6-5.0) mmol/L Chloride 96.5 L (98-107) mmol/L Carbon Dioxide 25 (22-30) mmol/L Anion Gap 18 mmol/L BUN 7 L (9-20) mg/dL Creatinine 0.7 L (0.8-1.3) mg/dL Estimated GFR > 60 ml/min BUN/Creatinine Ratio 10 % Glucose 118 H (75-100) mg/dL Calcium 10.2 (8.4-10.2) mg/dL Magnesium 2.00 (1.7-2.3) mg/dL Troponin T < 0.010 (0.00-0.029) ng/mL TSH (0.270-4.200) mlU/mL Plasma/Serum Alcohol (0-0.07) % 03/30/20 03/30/20 03/31/20 Range/Units 23:32 23:32 01:01 WBC (4.5-11.0) K/mm3 RBC (3.65-5.03) M/mm3 Hgb (11.8-15.2) gm/dl Hct (35.5-45.6) % MCV (84-94) fl MCH (28-32) pg MCHC (32-34) % RDW (13.2-15.2) % Plt Count (140-440) K/mm3 Lymph % (Auto) (13.4-35.0) % [place] % (Auto) (0.0-7.3) % Eos % (Auto) (0.0-4.3) % Baso % (Auto) (0.0-1.8) % Lymph # (Auto) (1.2-5.4) K/mm3 [place] # (Auto) (0.0-0.8) K/mm3 Eos # (Auto) (0.0-0.4) K/mm3 Baso # (Auto) (0.0-0.1) K/mm3 Seg Neutrophils % (40.0-70.0) % Seg Neutrophils # (1.8-7.7) K/mm3 Sodium (137-145) mmol/L Potassium (3.6-5.0) mmol/L Chloride (98-107) mmol/L Carbon Dioxide (22-30) mmol/L Anion Gap mmol/L BUN (9-20) mg/dL Creatinine (0.8-1.3) mg/dL Estimated GFR ml/min BUN/Creatinine Ratio % Glucose (75-100) mg/dL Calcium (8.4-10.2) mg/dL Magnesium (1.7-2.3) mg/dL Troponin T < 0.010 (0.00-0.029) ng/mL TSH 1.610 (0.270-4.200) mlU/mL Plasma/Serum Alcohol < 0.01 (0-0.07) % - EKG Data -: EKG Interpreted by Me EKG shows normal: sinus rhythm (PACs), axis, intervals, QRS complexes, ST-T waves Rate: normal - EKG Data When compared to previous EKG there are: no significant change, previous EKG unavailable Interpretation: unchanged when compared t (03/01/20) - Radiology Data Radiology results: report reviewed, image reviewed interpreted by me: Chest x-ray does not show any acute process. There are no pleural effusions, obvious pneumonia and there is no pneumothorax. No significant cardiomegaly. CT head/brain wo con INDICATION / CLINICAL INFORMATION: Patient complains of weakness. TECHNIQUE: Axial CT imaging of the brain was obtained without contrast. Coronal and sagittal reformatted imaging obtained and reviewed. All CT scans at this location are performed using CT dose reduction for ALARA by means of automated exposure control. COMPARISON: Prior head CT 12/03/2019 FINDINGS: No intracranial hemorrhage, mass, or midline shift. No extra-axial fluid collection or suggestion of acute territorial infarction. Ventricular system and basilar cisterns are unremarkable. Visualized paranasal sinuses and mastoid air cells are well aerated and clear. No calvarial abnormality. IMPRESSION: 1. No acute intracranial abnormality. - Medical Decision Making Regarding the patient's chest pain, his EKG does not have any morphology consistent with ST elevation myocardial infarction or any dysrhythmia. Chest x- ray does not show any pneumonia, pleural effusions, pneumothorax, focal consolidation, or any other acute process. Patient's labs have been unr emarkable including CBC, metabolic panel and negative troponins x2. The patient is low on the Wells score criteria negative on the pulmonary embolism rule out criteria. The patient had a negative stress test in January of last year and a normal echocardiogram in November of last year. For all these reasons the patient appears safe for discharge home regarding his chest discomfort. His contact information has been sent over to the [facility] and someone from their office should be contacting him shortly for close outpatient follow-up as part of our [facility] low risk chest pain protocol. The patient's back pain appears to be mostly in the lumbar paraspinal region. There is no midline thoracic or lumbar tenderness to palpation, step-off or deformity. The patient was given a dose of Flexeril and a shot of Toradol with some improvement. The patient had complained of a mild headache, some posterior neck pain, feelings of generalized weakness and shakiness, as well as some perioral numbness. A CT scan of the head without contrast was completed that does not show any bleeding, large vessel occlusion, mass, edema, or any other acute process. The only numbness is perioral and otherwise his cranial nerves are intact, 2 through 12. He has some mild distal bilateral upper extremity tremor or shakiness. He has a 0 on the NIH stroke scale. The patient has full bilateral upper and lower extremity muscle strength. He was seen ambulatory in the emergency department and both appears and feels stable. He will be discharged home to follow-up with his primary care physician, and has been given an outpatient referral for a local neurologist, Dr. Lott. Critical Care Time: No Critical care attestation.: If time is entered above; I have spent that time in minutes in the direct care of this critically ill patient, excluding procedure time. ED Disposition Clinical Impression: Atypical chest pain, Perioral numbness, Shakiness Back pain Qualifiers: Back pain location: low back pain Chronicity: unspecified Back pain laterality: bilateral Sciatica presence: without sciatica Qualified Code(s): M54.5 - Low back pain Disposition: TO HOME OR SELFCARE Is pt being admited?: No Condition: Stable Instructions: Acute Back Pain, Adult, Nonspecific Chest Pain, Adult, [id number], Pain Without a Known Cause, Chest Pain (ED) Additional Instructions: Please follow-up with your primary care physician in the next few days. I am giving you a referral for a local neurologist, Dr. Lott, to follow-up regarding the intermittent weakness and shakiness, as well as the numbness around her mouth. I have sent your contact information over to the [facility], and someone from their office should be contacting you shortly for close outpatient follow-up. Return to the emergency department with any worsening of your symptoms, new or concerning symptoms not addressed during this current emergency department visit, or with any acute distress. Referrals: PRIMARY CARE, [Primary Care Provider] - 2-3 Days SUKUMAR LOTT MD [Referring] - 3-5 Days KEKE MAZARIEGOS MD [Staff Physician] - 2-3 Days Time of Disposition: 01:57 - Assessment Assessment Interval: Baseline - Level of Consciousness 1a. Level of Consciousness: alert/keenly responsive - LOC Questions 1b. LOC Questions: answers both correctly - LOC Command 1c. LOC Commands: performs tasks correctly - Best Gaze 2. Best Gaze: normal - Visual 3. Visual: no visual loss - Facial Palsy 4. Facial Palsy: normal symmetrical movement - Motor Arm 5a. Motor Arm Left: no drift 5b. Motor Arm Right: no drift - Motor Leg 6a. Motor Leg Left: no drift 6b. Motor Leg Right: no drift - Limb Ataxia 7. Limb Ataxia: absent - Sensory 8. Sensory: normal - Best Language 9. Best Language: no aphasia - Dysarthria 10. Dysarthria: normal - Extinction and Inattention 11. Extinction/Inattention: no abnormality - Scoring Total Score: 0 Stroke Severity: No Stroke Symptoms
--- NOTE | 2020-03-31 00:20 | Cat Scan Report ---
CT head/brain wo con INDICATION / CLINICAL INFORMATION: Patient complains of weakness. TECHNIQUE: Axial CT imaging of the brain was obtained without contrast. Coronal and sagittal reformatted imaging obtained and reviewed. All CT scans at this location are performed using CT dose reduction for ALAR A by means of automated exposure control. COMPARISON: Prior head CT 12/03/2019 FINDINGS: No intracranial hemorrhage, mass, or midline shift. No extra-axial fluid collection or suggestion of acute territorial infarction. Ventricular system and basilar cisterns are unremarkable. Visualized paranasal sinuses and mastoid air cells are well aerated and clear. No calvarial abnormali ty. IMPRESSION: 1. No acute intracranial abnormality. Signer Name: Yanira Burkett MD Signed: 03/31/2020 12:16 AM Workstation Name: [id number]
[2020-03-31] MEDS ORDERED: CYCLOBENZAPRINE 10 MG TAB PO ONE (00:39)
[2020-03-31] MEDS ORDERED: KETOROLAC 30 MG/1 ML INJ IM ONE (00:39)
[2020-03-31 02:29] VITALS: BP 120/78
== END 2020-03-31 02:30 | disposition home or self-care (01) ==
LOC: ED 20:59
DX: R07.89 Other chest pain (principal); M54.6 Pain in thoracic spine; R20.0 Anesthesia of skin; R25.1 Tremor, unspecified; I10 Essential (primary) hypertension; Z79.899 Other long term (current) drug therapy
CPT/HCPCS: 36415; 70450; 71045; 80048; 83735; 84443; 84484; 85025; 93005; 96372; 99284; J1885; 80320; G0480

== ENCOUNTER 2021-01-27 08:12 | Observation (INO) | payer SELFPAY ==
[2021-01-27] MEDS ORDERED: fentaNYL 100 MCG/2 ML INJ IV ONE (08:52)
[2021-01-27] MEDS ORDERED: ONDANSETRON 4 MG/2 ML INJ IV ONE (08:52)
[2021-01-27] MEDS ORDERED: ASPIRIN 325 MG TAB PO ONE (08:53)
[2021-01-27] MEDS ORDERED: NITROGLYCERIN 2% OINT 1 GM TP ONE (08:53)
--- NOTE | 2021-01-27 08:57 | Emergency Department Report ---
HPI - General Chief Complaint: Chest Pain Time Seen by Provider: 01/27/21 08:37 - HPI HPI: MSE 5 The patient is a 60-year-old male present with a chief complaint of chest pain. Patient states for the past 6 to 7 days he has had constant left-sided chest pain described as a soreness associated with shortness of breath and nausea without vomiting. Patient denies diaphoresis but states he became dizzy yesterday with this chest pain. Patient currently gives a chest pain score of 7/10. Patient states he had a stress test approximately 8 to 9 months ago which was normal but he's never had a cardiac catheterization ED Past Medical Hx - Past Medical History Hx Hypertension: Yes - Surgical History Past Surgical History?: No - Family History Family history: no significant - Social History Smoking Status: Current Every Day Smoker (1 pack/day) Substance Use Type: None (Denies illicit drug use), Alcohol (Occasional) - Medications Home Medications: Home Medications Medication Instructions Recorded Confirmed Last Taken Type amLODIPine 10 mg PO DAILY 12/03/19 01/27/20 01/27/20 History Aspirin EC [Halfprin EC] 81 mg PO QDAY #30 tablet. 12/04/19 01/27/20 01/26/20 Rx Folic Acid [Folvite] 1 mg PO QDAY #30 tablet 12/04/19 01/27/20 01/24/20 Rx Pravastatin [Pravachol] 40 mg PO QHS #30 tablet 12/04/19 01/27/20 01/25/20 Rx HYDROcodone/APAP 5-325 [[place] 1 each PO Q6HR PRN #10 tablet 01/27/20 Unknown Rx 5/325] Pantoprazole [Protonix TAB] 40 mg PO DAILY 01/27/20 01/27/20 01/26/20 History Tolnaftate [Athlete's Foot] 1 applicatio TP BID 30 Days 01/27/20 Unknown Rx cream..g. Naproxen [Naprosyn] 500 mg PO BID #14 tablet 03/01/20 Unknown Rx ED Review of Systems ROS: Stated complaint: CHEST PAIN Other details as noted in HPI Constitutional: denies: diaphoresis Eyes: denies: eye pain ENT: denies: throat pain Respiratory: shortness of breath Cardiovascular: chest pain Endocrine: no symptoms reported Gastrointestinal: nausea. denies: vomiting Musculoskeletal: denies: back pain Neurological: denies: headache Physical Exam - Physical Exam Vital Signs: Vital Signs 01/27/21 08:20 Temperature 98.9 F Pulse Rate 92 H Respiratory 20 Rate Blood Pressure 162/101 [Left] O2 Sat by Pulse 99 Oximetry Physical Exam: GENERAL: The patient is well-developed well-nourished male lying on stretcher not appearing to be in acute distress. [] HEENT: Normocephalic. Atraumatic. Extraocular motions are intact. Patient has moist mucous membranes. NECK: Supple. Trachea midline CHEST/LUNGS: Clear to auscultation. There is no respiratory distress noted. HEART/CARDIOVASCULAR: Regular. There is no tachycardia. There is no gallop rub or murmur. ABDOMEN: Abdomen is soft, nontender. Patient has normal bowel sounds. There is no abdominal distention. SKIN: There is no rash. There is no edema. There is no diaphoresis. NEURO: The patient is awake, alert, and oriented. The patient is cooperative. The patient has no focal neurologic deficits. The patient has normal speech. GCS 15 MUSCULOSKELETAL: There is no evidence of acute injury. ED Course Vital Signs 01/27/21 08:20 Temperature 98.9 F Pulse Rate 92 H Respiratory 20 Rate Blood Pressure 162/101 [Left] O2 Sat by Pulse 99 Oximetry ED Medical Decision Making - Lab Data Result diagrams: 01/27/21 09:00 01/27/21 09:00 Laboratory Tests 01/27/21 01/27/21 09:00 09:00 WBC 3.5 L RBC 4.92 Hgb 16.7 H Hct 49.3 H MCV 100 H MCH 34 H MCHC 34 RDW 13.8 Plt Count 176 Lymph % (Auto) 27.3 [place] % (Auto) 8.6 H Eos % (Auto) 5.3 H Baso % (Auto) 0.9 Lymph # (Auto) 1.0 L [place] # (Auto) 0.3 Eos # (Auto) 0.2 Baso # (Auto) 0.0 Seg Neutrophils % 57.9 Seg Neutrophils # 2.0 Sodium 141 Potassium 4.1 Chloride 103.1 Carbon Dioxide 22 Anion Gap 20 BUN 6 L Creatinine 0.7 L Estimated GFR > 60 BUN/Creatinine Ratio 9 Glucose 92 Calcium 9.2 Total Creatine Kinase 198 H CK-MB (CK-2) 1.3 CK-MB (CK-2) Rel Index 0.6 Troponin T < 0.010 - EKG Data -: EKG Interpreted by Me EKG shows normal: sinus rhythm Rate: normal - EKG Data When compared to previous EKG there are: no significant change Interpretation: unchanged when compared t (03/30/2020) - Radiology Data Radiology results: report reviewed (Chest x-ray), image reviewed (Chest x-ray) interpreted by me: Chest x-ray-no definite focal infiltrates, no pneumothorax. No cardiomegaly [facility] [address] [place] [address] XRay Report Signed Patient: SUNDEEP SALAMANCA MR#: [id number] : 1960 Acct:[id number] Age/Sex: 60 / M ADM Date: 01/27/21 Loc: ED Attending Dr: Ordering Physician: NICOLETTE MOREIRA MD Date of Service: 01/27/21 Procedure(s): XR chest routine 2V Accession Number(s): [id number] cc: NICOLETTE MOREIRA MD Fluoro Time In Minutes: CHEST 2 VIEWS INDICATION: chest pain. COMPARISON: 03/30/2020 FINDINGS: Support devices: None. Heart: Within normal limits. Lungs/Pleura: No acute air space or interstitial disease. No significant pleural effusion. IMPRESSION: No acute findings. Signer Name: Mark Manuel MD Signed: 01/27/2021 9:48 AM Workstation Name: [id number] Transcribed By: ES Dictated By: Mark Manuel MD Electronically Authenticated By: Mark Manuel MD Signed Date/Time: 01/27/21947 DD/ 6 TD/TT: Print Cancel - Differential Diagnosis ACS, pericarditis, GERD Critical care attestation.: If time is entered above; I have spent that time in minutes in the direct care of this critically ill patient, excluding procedure time. ED Disposition Clinical Impression: Chest pain Disposition: ADMITTED INPATIENT Is pt being admited?: Yes Does the pt Need Aspirin: Yes Condition: Fair Instructions: Nonspecific Chest Pain, Adult Time of Disposition: 10:17 (Hospitalist called (Dr. Garsia)) Heart Score - HEART Score History: Moderately suspicious EKG: Non-specific Age: 45-65 Risk factors: 1-2 risk factors Troponin: < normal limit HEART Score: 4 - EKG Read Time Time EKG Completed: 08:21 (.) EKG Read Time: 08:28
[2021-01-27 09:23] LABS: Basophils % (Auto) 0.9 % (0.0-1.8); Eosinophils # (Auto) 0.2 K/mm3 (0.0-0.4); Eosinophils % (Auto) 5.3 % (0.0-4.3); Hematocrit 49.3 % (35.5-45.6); Hemoglobin 16.7 gm/dl (11.8-15.2); Lymphocytes % (Auto) 27.3 % (13.4-35.0); Mean Corpuscular HGB Conc 34 % (32-34); Mean Corpuscular Volume 100 fl (84-94); Monocytes # (Auto) 0.3 K/mm3 (0.0-0.8); Monocytes % (Auto) 8.6 % (0.0-7.3); Platelet Count 176 K/mm3 (140-440); Red Blood Count 4.92 M/mm3 (3.65-5.03); Red Cell Distribution Width 13.8 % (13.2-15.2)
[2021-01-27 09:51] LABS: Blood Urea Nitrogen 6 mg/dL (9-20); Calcium 9.2 mg/dL (8.4-10.2); Creatine Kinase MB 1.3 ng/mL (0.0-4.0); Hemolysis Index 10
[2021-01-27 09:52] LABS: BUN/Creatinine Ratio 9
--- NOTE | 2021-01-27 09:52 | XRay Report ---
CHEST 2 VIEWS INDICATION: chest pain. COMPARISON: 03/30/2020 FINDINGS: Support devices: None. Heart: Within normal limits. Lungs/Pleura: No acute air space or interstitial disease. No significant pleural effusion. IMPRESSION: No acute findings. Signer Name: Mark Manuel MD Signed: 01/27/2021 9:48 AM Workstation Name: [id number]
[2021-01-27] MEDS ORDERED: oxyCODONE /ACETAMINOPHEN 5-325MG TAB PO PRN (12:17)
[2021-01-27] MEDS ORDERED: ONDANSETRON 4 MG/2 ML INJ IV PRN (12:17)
[2021-01-27] MEDS ORDERED: MORPHINE 4 MG/1 ML INJ IV PRN (12:17)
[2021-01-27] MEDS ORDERED: ACETAMINOPHEN 325 MG TAB PO PRN (12:17)
--- NOTE | 2021-01-27 12:21 | History and Physical Report ---
History of Present Illness Date of examination: 01/27/21 Chief complaint: Chest pain, lightheadedness and dizziness Past History Past Medical History: hypertension Past Surgical History: No surgical history Social history: smoking, alcohol abuse (drinks 4 16oz beers daily) Family history: no significant family history Medications and Allergies Allergies Allergy/AdvReac Type Severity Reaction Status Date / Time No Known Allergies Allergy Verified 01/27/21 08:17 Home Medications Medication Instructions Recorded Confirmed Last Taken Type amLODIPine 10 mg PO DAILY 12/03/19 01/27/20 01/27/20 History Aspirin EC [Halfprin EC] 81 mg PO QDAY #30 tablet. 12/04/19 01/27/20 01/26/20 Rx Folic Acid [Folvite] 1 mg PO QDAY #30 tablet 12/04/19 01/27/20 01/24/20 Rx Pravastatin [Pravachol] 40 mg PO QHS #30 tablet 12/04/19 01/27/20 01/25/20 Rx HYDROcodone/APAP 5-325 [[place] 1 each PO Q6HR PRN #10 tablet 01/27/20 Unknown Rx 5/325] Pantoprazole [Protonix TAB] 40 mg PO DAILY 01/27/20 01/27/20 01/26/20 History Tolnaftate [Athlete's Foot] 1 applicatio TP BID 30 Days 01/27/20 Unknown Rx cream..g. Naproxen [Naprosyn] 500 mg PO BID #14 tablet 03/01/20 Unknown Rx Active Meds: Active Medications Acetaminophen (Acetaminophen 325 Mg Tab) 650 mg PO Q4H PRN PRN Reason: Pain MILD(1-3)/Fever >100.5/BREWER Amlodipine Besylate (Amlodipine 5 Mg Tab) 10 mg PO DAILY [facility] Aspirin (Aspirin Ec 81 Mg Tab) 81 mg PO QDAY [facility] Heparin Sodium (Porcine) (Heparin 5,000 Unit/1 Ml Vial) 5,000 unit SUB-Q BID MARCELO Morphine Sulfate (Morphine 4 Mg/1 Ml Inj) 4 mg IV Q4H PRN PRN Reason: Pain , Severe (7-10) Ondansetron HCl (Ondansetron 4 Mg/2 Ml Inj) 4 mg IV Q8H PRN PRN Reason: Nausea And Vomiting Oxycodone/Acetaminophen (Oxycodone /Acetaminophen 5-325mg Tab) 1 tab PO Q6H PRN PRN Reason: Pain, Moderate (4-6) Sodium Chloride (Sodium Chloride 0.9% 10 Ml Flush Syringe) 10 ml IV BID MARCELO Sodium Chloride (Sodium Chloride 0.9% 10 Ml Flush Syringe) 10 ml IV PRN PRN PRN Reason: LINE FLUSH Review of Systems All systems: negative Neurological: headaches Exam - Physical Exam Narrative exam: GENERAL: Well-developed well-nourished. Sitting on the side of the bed in no acute distress. HEENT: Normocephalic. Atraumatic. NECK: Supple. CHEST/LUNGS: CTAB on room air HEART/CARDIOVASCULAR: RRR. No murmur, rubs or gallops appreciated. ABDOMEN: +BS. NT/ND. SKIN: No rashes noted. NEURO: No focal motor deficit. Follows all commands and is ambulatory. MUSCULOSKELETAL: No joint effusion EXTREMITIES: No cyanosis, cubbing or edema. PSYCH: Cooperative. - Constitutional Vitals: Temp Pulse Resp BP Pulse Ox 98.9 F 92 H 20 162/101 96 01/27/21 08:20 01/27/21 08:20 01/27/21 08:20 01/27/21 08:20 01/27/21 10:19 HEART Score - HEART Score History: Slightly suspicious EKG: Non-specific Age: 45-65 Risk factors: 1-2 risk factors Troponin: Troponin T < 0.010 ng/mL (0.00-0.029) 01/27/21 09:00 Troponin: < normal limit HEART Score: 3 Results - Labs CBC & Chem 7: 01/27/21 09:00 01/27/21 09:00 Labs: Laboratory Last Values WBC 3.5 K/mm3 (4.5-11.0) L 01/27/21 09:00 RBC 4.92 M/mm3 (3.65-5.03) 01/27/21 09:00 Hgb 16.7 gm/dl (11.8-15.2) H 01/27/21 09:00 Hct 49.3 % (35.5-45.6) H 01/27/21 09:00 MCV 100 fl (84-94) H 01/27/21 09:00 MCH 34 pg (28-32) H 01/27/21 09:00 MCHC 34 % (32-34) 01/27/21 09:00 RDW 13.8 % (13.2-15.2) 01/27/21 09:00 Plt Count 176 K/mm3 (140-440) 01/27/21 09:00 Lymph % (Auto) 27.3 % (13.4-35.0) 01/27/21 09:00 Citrus % (Auto) 8.6 % (0.0-7.3) H 01/27/21 09:00 Eos % (Auto) 5.3 % (0.0-4.3) H 01/27/21 09:00 Baso % (Auto) 0.9 % (0.0-1.8) 01/27/21 09:00 Lymph # (Auto) 1.0 K/mm3 (1.2-5.4) L 01/27/21 09:00 [place] # (Auto) 0.3 K/mm3 (0.0-0.8) 01/27/21 09:00 Eos # (Auto) 0.2 K/mm3 (0.0-0.4) 01/27/21 09:00 Baso # (Auto) 0.0 K/mm3 (0.0-0.1) 01/27/21 09:00 Seg Neutrophils % 57.9 % (40.0-70.0) 01/27/21 09:00 Seg Neutrophils # 2.0 K/mm3 (1.8-7.7) 01/27/21 09:00 Sodium 141 mmol/L (137-145) 01/27/21 09:00 Potassium 4.1 mmol/L (3.6-5.0) 01/27/21 09:00 Chloride 103.1 mmol/L (98-107) 01/27/21 09:00 Carbon Dioxide 22 mmol/L (22-30) 01/27/21 09:00 Anion Gap 20 mmol/L 01/27/21 09:00 BUN 6 mg/dL (9-20) L 01/27/21 09:00 Creatinine 0.7 mg/dL (0.8-1.3) L 01/27/21 09:00 Estimated GFR > 60 ml/min 01/27/21 09:00 BUN/Creatinine Ratio 9 % 01/27/21 09:00 Glucose 92 mg/dL (75-100) 01/27/21 09:00 Calcium 9.2 mg/dL (8.4-10.2) 01/27/21 09:00 Total Creatine Kinase 198 units/L (55-170) H 01/27/21 09:00 CK-MB (CK-2) 1.3 ng/mL (0.0-4.0) 01/27/21 09:00 CK-MB (CK-2) Rel Index 0.6 (0-4) 01/27/21 09:00 Troponin T < 0.010 ng/mL (0.00-0.029) 01/27/21 09:00 - Imaging and Cardiology EKG: report reviewed Assessment and Plan Assessment and plan: #Atypical chest pain #Hypertension #Medication noncompliance #Tobacco dependence #Alcohol dependence Advance Directives: No VTE prophylaxis?: Chemical Plan of care discussed with patient/family: Yes
--- NOTE | 2021-01-27 13:41 | Electrocardiograph Report ---
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
[2021-01-27 16:29] LABS: Chol/HDL Ratio 2.34 %; HDL Cholesterol 109 mg/dL (40-59); LDL Cholesterol,Direct 137 mg/dL (50-130)
[2021-01-27] MEDS: NICOTINE 21 MG/24 HR PATCH TD SCH (19:59)
[2021-01-27 21:13] LABS: Bacteria,Urine 1+ /HPF (Negative); Bilirubin,Urine NEG (Negative); Blood,Urine NEG (Negative); Color,Urine Amber (Yellow); Mucus,Urine 3+ /HPF
[2021-01-27] MEDS: HEPARIN 5,000 UNIT/1 ML VIAL SUB-Q SCH (21:39)
[2021-01-28 07:01] LABS: Basophils % (Auto) 1.1 % (0.0-1.8); Eosinophils # (Auto) 0.2 K/mm3 (0.0-0.4); Eosinophils % (Auto) 5.5 % (0.0-4.3); Hematocrit 48.1 % (35.5-45.6); Hemoglobin 15.6 gm/dl (11.8-15.2); Lymphocytes # (Auto) 1.3 K/mm3 (1.2-5.4); Lymphocytes % (Auto) 33.4 % (13.4-35.0); Mean Corpuscular HGB Conc 32 % (32-34); Mean Corpuscular Volume 101 fl (84-94); Monocytes # (Auto) 0.4 K/mm3 (0.0-0.8); Monocytes % (Auto) 9.6 % (0.0-7.3); Platelet Count 165 K/mm3 (140-440); Red Blood Count 4.77 M/mm3 (3.65-5.03)
[2021-01-28] MEDS ORDERED: REGADENOSON 0.4 MG/5 ML INJ IV ONE (07:04)
[2021-01-28 07:22] LABS: BUN/Creatinine Ratio 13; Blood Urea Nitrogen 10 mg/dL (9-20); Calcium 9.3 mg/dL (8.4-10.2); Hemolysis Index 28
[2021-01-28] MEDS ORDERED: ASPIRIN EC 81 MG TAB PO SCH (10:00)
[2021-01-28] MEDS ORDERED: amLODIPine 10 MG TAB PO SCH (10:00)
--- NOTE | 2021-01-28 11:35 | Nuclear Medicine Report ---
APPROVED REPORT Exam: Nuclear Stress Test Indication: Chest pain [facility] Ht: 5 ft 11 in Wt: 174 lbs BSA: 1.99 m2 HR: 68 bpmBP: 151/90 mmHgBMI: 24.26 Rhythm: sinus rhythm Stress Test Details Stress Test: Exercise stress testing was performed using a Simone protocol. HR Resting HR: 68 bpm Max HR Achieved: 142 bpm Max Heart Rate (APMHR): 161 bpm Target HR (85% APMHR): 136 bpm % of APMHR: 88 Recovery HR: 121 bpm BP Resting BP: 151/90 mmHg Max BP: 194/101 mmHg Recovery BP: 142/87 mmHg ECG Resting ECG: Sinus Rhythm Stress ECG: Sinus Tachycardia ST Change: None Arrhythmia: None Recovery ECG: Sinus Rhythm Recovery ST Change: None Recovery Arrhythmia: None Clinical Reason for Termination: Fatigue Stress Symptoms: None Exercise duration: 10:00 min sec Exercise capacity: 10.9 METs Overall Exercise Capacity for Age: Normal Stress ECG Conclusion Patient exercised for 10 minutes of a Simone protocol, no chest pain, no ST changes of ischemia, no dysrhythmias. Myocardial perfusion images are pending. NM EXAM: Myocardial Perfusion REST/STRESS Imaging Protocol: Rest Tc-99m/Stress Tc-99m 1 day Resting Data Rest SPECT myocardial perfusion imaging was performed in supine position 45 minutes following the intravenous injection of 10 mCi of Tc-99m Myoview. Time of rest injection: 0715 Exercise Stress At peak stress, the patient was injected intravenously with 28mCi of Tc-99m Myoview. Time of stress injection: 1020 Gated Stress SPECT was performed 20 minutes after stress injection. The images were gated to evaluate regional wall motion and calculate left ventricular ejection fraction. Study Quality Study: excellent Lung Uptake: Normal Study Data TID = 0.96. Perfusion Wall Motion The rest and stress images show normal left ventricular wall motion. Nuclear Conclusion ECG Findings: negative for ischemia Clinical Findings: negative for ischemia Nuclear Findings: negative for ischemia Exercise Capacity: normal Left Ventricular Function: normal Risk Study: low Very good exercise capacity, no chest pain with exercise to stage IV of a Simone protocol, no ST changes of ischemia. Myocardial perfusion images show mild diaphragmatic attenuation artifact, otherwise normal perfusion. Normal left ventricular systolic function ejection fraction 55%. Normal study. Conclusion Patient exercised for 10 minutes of a Simone protocol, no chest pain, no ST changes of ischemia, no dysrhythmias. Myocardial perfusion images are pending.
[2021-01-28] MEDS: NICOTINE 21 MG/24 HR PATCH TD SCH (11:49)
[2021-01-28] MEDS: HEPARIN 5,000 UNIT/1 ML VIAL SUB-Q SCH (11:51)
--- NOTE | 2021-01-28 15:44 | Discharge Summary ---
Providers - Providers Date of Admission: 01/27/21 12:17 Date of discharge: 01/28/21 Attending physician: SHEELA PETERSON MD Primary care physician: RAY RUELAS MD Hospitalization Condition: Fair Exam - Constitutional Vitals: Temp Pulse Resp BP Pulse Ox 98.2 F 74 18 142/92 95 01/28/21 10:59 01/28/21 10:59 01/28/21 10:59 01/28/21 11:52 01/28/21 10:59 Plan Care Plan Goals: Follow up with your primary care doctor. Bring your new medications with you. Start taking amlodipine, atorvastatin and aspirin every day. Attempt to cut back and eventually quit smoking. Making this change will only improve your quality of life. Assessment: Patient reported with atypical chest pain for 9 days duration. He was not taking his blood pressure medications or statins. He is a smoker, drinks more than 4 cans of beer daily. Due to his risk factors and age, stress test was ordered. Stress test was negative for ischemia. Patient medications were restarted. He was discharged home and instructed to follow up with his PCP. Follow up with: PRIMARY CAREMD [Primary Care Provider] - 7 Days Prescriptions: AtorvaSTATin [Lipitor] 40 mg PO QHS 30 Days #30 tablet amLODIPine 10 mg PO DAILY 30 Days #30 tablet Nicotine [Habitrol] 21 mg TD QDAY 30 Days #30 patch Aspirin EC [Halfprin EC] 81 mg PO QDAY 30 Days #30 tablet
[2021-01-28 16:09] VITALS: BP 142/94
== END 2021-01-28 16:59 | disposition home or self-care (01) ==
LOC: ED 08:12 → 4A 12:17
PROVIDERS: ADMIT Student in an Organized Health Care Education/Training Program; ATTEND Student in an Organized Health Care Education/Training Program
DX: R07.89 Other chest pain (principal); I10 Essential (primary) hypertension; F17.210 Nicotine dependence, cigarettes, uncomplicated; F10.129 Alcohol abuse with intoxication, unspecified; Z91.14 Patient's other noncompliance with medication regimen; Z79.82 Long term (current) use of aspirin; Z79.899 Other long term (current) drug therapy
CPT/HCPCS: 36415; 71046; 78452; 80048; 80061; 81001; 82550; 82553; 83036; 84484; 85025; 87076; 87086; 87186; 93005; 93017; 96372; 96374; 96375; 99285; 99406; A9502; G0378; J1644; J2270; J2405; J3010

== ENCOUNTER 2021-04-28 11:41 | Emergency (ER) | payer SELFPAY ==
--- NOTE | 2021-04-28 12:06 | Emergency Department Report ---
ED Chest Pain HPI - General Chief Complaint: Weakness Stated Complaint: WEAKNESS PUI?: No Time Seen by Provider: 04/28/21 11:55 Source: patient, EMS, old records reviewed Mode of arrival: Stretcher Limitations: No Limitations - History of Present Illness Initial Comments: Chief complaint: "I fell down." HPI: This is a 60-year-old male with history of hypertension and tobacco dependence who presents with near syncope today. He has been generally weak. He fell today. He denies loss consciousness. He has a knot sensation in the epigastric region. According to electronic record patient was admitted in January for cardiac evaluation. On January 28, 2021 patient underwent myocardial perfusion scan. Nuclear scan and ECG negative for ischemia. Ejection fraction 55%. Normal study. In January 2020, CT angiogram negative for pulmonary embolism. Exercise stress test obtained January 24, 2020 normal. MD Complaint: other (Epigastric pain, near syncope) -: Gradual, This morning Onset: during rest Pain Location: epigastric Pain Radiation: none Severity: mild Severity scale (0 -10): 5 Quality: dull Consistency: constant Improves With: nothing Worsens With: nothing Treatments Prior to Arrival: other (Patient went to the fire station for blood pressure check) - Related Data Home Medications Medication Instructions Recorded Confirmed Last Taken amLODIPine 10 mg PO DAILY 12/03/19 01/28/21 01/27/20 Previous Rx's Medication Instructions Recorded Last Taken Type Aspirin EC [Halfprin EC] 81 mg PO QDAY #30 tablet. 12/04/19 01/26/21 Rx Aspirin EC [Halfprin EC] 81 mg PO QDAY 30 Days #30 tablet 01/28/21 Unknown Rx AtorvaSTATin [Lipitor] 40 mg PO QHS 30 Days #30 tablet 01/28/21 Unknown Rx Naproxen 500 mg PO Q8H 5 Days #15 tablet 01/28/21 Unknown Rx Nicotine [Habitrol] 21 mg TD QDAY 30 Days #30 patch 01/28/21 Unknown Rx amLODIPine 10 mg PO DAILY 30 Days #30 tablet 01/28/21 Unknown Rx amLODIPine 10 mg PO DAILY 90 Days #90 tab 04/28/21 Unknown Rx Allergies Allergy/AdvReac Type Severity Reaction Status Date / Time No Known Allergies Allergy Verified 01/27/21 08:17 Heart Score - HEART Score History: Slightly suspicious EKG: Normal Age: 45-65 Risk factors: 1-2 risk factors Troponin: < normal limit HEART Score: 2 - EKG Read Time Time EKG Completed: 12:31 EKG Read Time: 12:31 - Critical Actions Critical Actions: 0-3 pts:0.9-1.7%risk of adverse cardiac event.Candidate for discharge ED Review of Systems ROS: Stated complaint: WEAKNESS Other details as noted in HPI Comment: All other systems reviewed and negative Constitutional: denies: chills, fever, malaise Respiratory: denies: cough, shortness of breath Cardiovascular: denies: chest pain Gastrointestinal: abdominal pain. denies: nausea, vomiting ED Past Medical Hx - Past Medical History Previous Medical History?: Yes Hx Hypertension: Yes - Surgical History Past Surgical History?: No - Family History Family history: hypertension - Social History Smoking Status: Current Every Day Smoker Substance Use Type: Alcohol - Medications Home Medications: Home Medications Medication Instructions Recorded Confirmed Last Taken Type amLODIPine 10 mg PO DAILY 12/03/19 01/28/21 01/27/20 History Aspirin EC [Halfprin EC] 81 mg PO QDAY #30 tablet. 12/04/19 01/28/21 01/26/21 Rx Aspirin EC [Halfprin EC] 81 mg PO QDAY 30 Days #30 tablet 01/28/21 Unknown Rx AtorvaSTATin [Lipitor] 40 mg PO QHS 30 Days #30 tablet 01/28/21 Unknown Rx Naproxen 500 mg PO Q8H 5 Days #15 tablet 01/28/21 Unknown Rx Nicotine [Habitrol] 21 mg TD QDAY 30 Days #30 patch 01/28/21 Unknown Rx amLODIPine 10 mg PO DAILY 30 Days #30 tablet 01/28/21 Unknown Rx amLODIPine 10 mg PO DAILY 90 Days #90 tab 04/28/21 Unknown Rx ED Physical Exam - General Limitations: No Limitations General appearance: alert, in no apparent distress - Head Head exam: Present: atraumatic, normocephalic - Eye Eye exam: Present: normal appearance - ENT ENT exam: Present: mucous membranes moist - Neck Neck exam: Present: normal inspection, full ROM - Respiratory Respiratory exam: Present: normal lung sounds bilaterally. Absent: respiratory distress, wheezes, rales, rhonchi - Cardiovascular Cardiovascular Exam: Present: regular rate, normal rhythm, normal heart sounds. Absent: systolic murmur, diastolic murmur, rubs, gallop - GI/Abdominal GI/Abdominal exam: Present: soft, normal bowel sounds. Absent: distended, tenderness, guarding, rebound - Rectal Rectal exam: Present: deferred - Extremities Exam Extremities exam: Present: normal inspection - Neurological Exam Neurological exam: Present: alert, oriented X3 - Psychiatric Psychiatric exam: Present: normal affect, normal mood - Skin Skin exam: Present: warm, dry, intact, normal color. Absent: rash ED Course Vital Signs 04/28/21 04/28/21 04/28/21 11:42 11:44 12:20 Temperature 98 F 98.4 F Pulse Rate 97 H 96 H Respiratory 20 16 Rate Blood Pressure Blood Pressure 160/90 148/91 [Left] O2 Sat by Pulse 98 98 98 Oximetry 04/28/21 04/28/21 04/28/21 12:30 12:46 13:00 Temperature Pulse Rate Respiratory Rate Blood Pressure 120/80 120/80 Blood Pressure [Left] O2 Sat by Pulse 96 97 96 Oximetry 04/28/21 04/28/21 04/28/21 13:20 13:30 13:46 Temperature Pulse Rate Respiratory Rate Blood Pressure 159/94 148/91 155/89 Blood Pressure [Left] O2 Sat by Pulse 99 96 99 Oximetry 04/28/21 04/28/21 04/28/21 14:00 14:16 14:30 Temperature Pulse Rate Respiratory Rate Blood Pressure 130/69 127/66 122/72 Blood Pressure [Left] O2 Sat by Pulse 95 98 99 Oximetry EMI score - Emi Score Age > 65: (0) No Aspirin use within the Past 7 Days: (0) No 3 or more CAD Risk Factors: (0) No 2 or more Angina events in past 24 hrs: (1) Yes Known CAD with more than 50% Stenosis: (0) No Elevated Cardiac Markers: (0) No ST Deviation Greater than 0.5mm: (0) No EMI Score: 1 ED Medical Decision Making - Lab Data Result diagrams: 04/28/21 13:13 04/28/21 13:13 - EKG Data -: EKG Interpreted by Me EKG shows normal: sinus rhythm, axis, intervals, QRS complexes, ST-T waves Rate: normal - EKG Data Interpretation: normal EKG 04/28/21 12:46 EKG obtained 1231 EKG interpreted by me Normal sinus rhythm normal rate normal axis normal intervals no ST elevation no ST-T signs of ischemia normal EKG - Radiology Data Radiology results: report reviewed Chest radiograph AP portable 1 view radiology impression no acute findings - Medical Decision Making 60-year-old male presents with recurrent epigastric pain. Mr. Zhang has had extensive cardiac evaluation here at this hospital. No evidence of coronary disease. I suspect peptic ulcer disease. CBC chemistry troponin D-dimer within normal limits. EKG normal. X-ray normal. Recommended scheduled dosing of famotidine. Patient was prescribed amlodipine. Critical care attestation.: If time is entered above; I have spent that time in minutes in the direct care of this critically ill patient, excluding procedure time. ED Disposition Clinical Impression: Peptic ulcer disease Disposition: HOME / SELF CARE / HOMELESS Is pt being admited?: No Does the pt Need Aspirin: No Condition: Stable Instructions: Peptic Ulcer, [id number], Steps to Quit Smoking, [id number] Prescriptions: amLODIPine 10 mg PO DAILY 90 Days #90 tab Referrals: SAADIA IBARRA MD [Staff Physician] - 3-5 Days
--- NOTE | 2021-04-28 12:42 | XRay Report ---
CHEST 1 VIEW INDICATION: Chest Pain. COMPARISON: 01/27/2021 FINDINGS: Support devices: None. Heart: Within normal limits. Lungs/Pleura: No acute air space or interstitial disease. Additional findings: None. IMPRESSION: No acute findings. Signer Name: Seth Pagan Jr, MD Signed: 04/28/2021 12:37 PM Workstation Name: [id number]
[2021-04-28 14:43] LABS: Basophils # (Auto) 0.1 K/mm3 (0.0-0.1); Basophils % (Auto) 2.8 % (0.0-1.8); Eosinophils # (Auto) 0.1 K/mm3 (0.0-0.4); Eosinophils % (Auto) 1.4 % (0.0-4.3); Hematocrit 47.5 % (35.5-45.6); Hemoglobin 15.5 gm/dl (11.8-15.2); Lymphocytes # (Auto) 0.8 K/mm3 (1.2-5.4); Lymphocytes % (Auto) 15.3 % (13.4-35.0); Mean Corpuscular HGB Conc 33 % (32-34); Mean Corpuscular Volume 100 fl (84-94); Monocytes # (Auto) 0.3 K/mm3 (0.0-0.8); Monocytes % (Auto) 6.2 % (0.0-7.3); Platelet Count 174 K/mm3 (140-440); Red Blood Count 4.76 M/mm3 (3.65-5.03); Red Cell Distribution Width 13.6 % (13.2-15.2)
[2021-04-28 16:06] LABS: Alanine Aminotransferase 138 units/L (7-56); Albumin 4.7 g/dL (3.9-5); Blood Urea Nitrogen 5 mg/dL (9-20); Calcium 9.6 mg/dL (8.4-10.2); Hemolysis Index 98
[2021-04-28 16:17] LABS: BUN/Creatinine Ratio 8
[2021-04-28 17:46] VITALS: BP 133/80
--- NOTE | 2021-04-29 09:32 | Electrocardiograph Report ---
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
== END 2021-04-28 19:05 | disposition home or self-care (01) ==
LOC: ED 11:41
DX: K27.1 Acute peptic ulcer, site unspecified, with perforation (principal); F17.200 Nicotine dependence, unspecified, uncomplicated; F10.20 Alcohol dependence, uncomplicated; I10 Essential (primary) hypertension
CPT/HCPCS: 36415; 71045; 80053; 84484; 85025; 85379; 93005; 93010; 99284